=== PATIENT | female | born 2005 | race Caucasian/White ===

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

== ENCOUNTER 2023-03-02 00:36 | Emergency (ER) | payer MEDICAID, SELFPAY ==
[2023-03-02 00:39] VITALS: BP 130/84; PULSE 106; RESP 16; TEMP 36.6; O2SAT 99; BMI 35.2
--- NOTE | 2023-03-02 00:55 | ED_ITS ---
Documented by User: KENTRELL Cosme 03/02/23 01:27 HPI - General Adult General: Chief complaint: Nausea/Vomiting/Diarrhea Stated complaint: hives, n/v/d , 27 wks Time Seen by Provider: 03/02/23 00:40 Source: patient Mode of arrival: ambulatory Limitations: no limitations History of Present Illness: Patient is a 17-year-old female at 27 weeks presents to ED today with a complaint of hives. Patient states she was at home on the phone when she began to feel nauseous. She states she went to the bathroom and vomited. She states she then began having some stomach cramps and sat down on the bathroom and had diffuse watery diarrhea. She states while sitting on the toilet she then broke out in hives. She has a history of hives. Upon arrival to ED she states hives have slightly improved. She is not feeling nauseous. No stomach cramps/abdominal pains. Has not had any further diarrhea. Denies vaginal bleeding/leaking of fluids. OB provider is Dr. Garcia. Onset (ago): hour(s) Quality: other (abdominal cramping prior to diarrhea) Pain Consistency: now resolved Relieving factors: other (diarrhea) Exacerbating factors: none Associated symptoms: Reports nausea, rash and vomiting; Deny chest pain, dyspnea, headache(s), palpitations or syncope Treatments prior to arrival: none Review of Systems Const: Denies: fever(s), chills or body aches Eyes: Denies: change in vision, blurry vision, photophobia, floaters or seeing flashes Card: Denies: chest pain, palpitations, edema, lightheadedness, syncope or pre-syncope Resp: Denies: dyspnea GI: Reports: nausea, vomiting, diarrhea and GI cramping; Denies: hematemesis, rectal pain, hematochezia, melena or mucus in stool : Denies: flank pain, dysuria, hematuria or pelvic pain Musc: Denies: neck pain, back pain, extremity pain or joint pain Skin/Breast: Reports: rash Neuro: Denies: headache(s), numbness in extremities, weakness in extremities, sensory changes or dizziness PFS ED PFSH: Medical History No pertinent past medical history No hx: HTN, DM, thyroid, DVT/PE PCP: Edson Dash Surgical History No pertinent past surgical history Family History Grandfather Cancer Great grandfather - Rare blood cancer Father Hyperlipidemia Grandmother Stroke Great grandmother Denies family history of Diabetes CAD (coronary artery disease) Clotting disorder Dementia Psychiatric illness Chronic kidney disease (CKD) Suicide Anesthesia complication Bleeding disorder Lung disease Hypertension Physical Exam Const: COMMON NORMALS: no acute distress, average body habitus, patient oriented x3, no limitations, healthy appearing, alert and well nourished HENMT: COMMON NORMALS: normocephalic and atraumatic HEAD & SCALP: normal to inspection, normocephalic and atraumatic FACE & SINUS: normal facial exam Eye: COMMON NORMALS: no scleral icterus Resp: COMMON NORMALS: normal respiratory effort and clear to auscultation bila terally AUSCULTATION: clear to auscultation bilaterally Cardio: COMMON NORMALS: regular rate and regular rhythm RATE: regular rate RHYTHM: regular rhythm GI: COMMON NORMALS: non-tender INSPECTION: Yes gravid abdomen : COMMON NORMALS: Yes no CVA tenderness BLADDER/KIDNEY EXAM: Yes no CVA tenderness Back/Pelvis: COMMON NORMALS: no CVA tenderness Extremity: GENERAL: Yes normal exam except as noted Neuro: RAVI COMA SCALE: document GCS findings Maria Stein coma scale eye opening: Spontaneous Maria Stein coma scale verbal response: Orientated Ravi coma scale motor response: Obey commands Maria Stein coma scale total score: 15 COMMON NORMALS: patient oriented x3 SENSORIUM/ORIENTATION: Yes alert Skin: GENERAL SKIN EXAM: other (generalized urticaria) RASHES: rashes noted Course ED course: OB coming to monitor baby as she is 27 weeks . Care being transferred to Dr. Ni as my shift is ending. ES Vital Signs: Vital signs: Vital Signs Temperature 97.9 F 03/02/23 00:39 Pulse Rate 89 03/02/23 01:35 Respiratory Rate 17 03/02/23 01:35 Blood Pressure 112/79 03/02/23 01:35 Pulse Oximetry 97 03/02/23 01:35 Oxygen Delivery Me thod Room Air 03/02/23 00:39 MDM - General Adult Lab Data 03/02/23 01:15 03/02/23 01:15 Laboratory Results WBC 13.97 10^3/uL (4.5-13.0) H 03/02/23 01:15 RBC 3.93 10^6/uL (3.85-5.65) 03/02/23 01:15 Hgb 11.30 g/dL (12.4-14.8) L 03/02/23 01:15 Hct 34.7 % (36-47) L 03/02/23 01:15 MCV 88.3 fl (85-98) 03/02/23 01:15 MCH 28.8 pg (27-33) 03/02/23 01:15 MCHC 32.6 g/dL (30-55) 03/02/23 01:15 RDW 13.1 % (12.1-15.1) 03/02/23 01:15 Plt Count 301 10^3/cmm (157-399) 03/02/23 01:15 MPV 9.7 fL (7.4-10.4) 03/02/23 01:15 Neut % (Auto) 70.7 % 03/02/23 01:15 Lymph % (Auto) 20.9 % 03/02/23 01:15 [place] % (Auto) 6.8 % 03/02/23 01:15 Eos % (Auto) 0.9 % 03/02/23 01:15 Baso % (Auto) 0.2 % 03/02/23 01:15 Neut # (Auto) 9.88 10^3/uL (1.8-8.0) H 03/02/23 01:15 Lymph # (Auto) 2.9 10^3/uL (1.5-6.5) 03/02/23 01:15 [place] # (Auto) 1.0 10^3/uL (0.2-0.9) H 03/02/23 01:15 Eos # (Auto) 0.1 10^3/uL (0.0-0.8) 03/02/23 01:15 Baso # (Auto) 0.0 10^3/uL (0.0-0.1) 03/02/23 01:15 Nucleated RBC % (auto) 0 % 03/02/23 01:15 Nucleated RBCs # 0.0 /100WBC 03/02/23 01:15 Sodium 137 mmol/L (136-145) 03/02/23 01:15 Potassium 4.1 mmol/L (3.5-5.1) 03/02/23 01:15 Chloride 104 mmol/L (98-107) 03/02/23 01:15 Carbon Dioxide 24 mmol/L (22-29) 03/02/23 01:15 Anion Gap 13.1 (5-19) 03/02/23 01:15 BUN 8 mg/dL (6-20) 03/02/23 01:15 Creatinine 0.4 mg/dL (0.5-0.9) L 03/02/23 01:15 GFR Calculation 205.6 mL/min (90-130) H 03/02/23 01:15 Glucose 97 mg/dL (65-115) 03/02/23 01:15 Calculated Osmolality 282 mOsm/kg (285-295) L 03/02/23 01:15 Calcium 8.5 mg/dL (8.5-10.5) 03/02/23 01:15 Total Bilirubin 0.2 mg/dL (0.15-1.2) 03/02/23 01:15 AST 10 U/L (0-32) 03/02/23 01:15 ALT < 5 U/L (0-33) 03/02/23 01:15 Alkaline Phosphatase 137 U/L (35-105) H 03/02/23 01:15 Total Protein 7.0 g/dL (6.6-8.7) 03/02/23 01:15 Albumin 3.6 g/dL (3.5-5.2) 03/02/23 01:15 Globulin 3.4 g/dL (1.3-4.6) 03/02/23 01:15 Discharge Plan Discharge Patient Disposition: Home Clinical Impression: Anaphylactoid reaction Condition: Stable Prescriptions: New EpiPen 2-Edwin 0.3 mg/0.3 mL auto-injector 0.3 mg IM Q10M PRN (Reason: anaphylaxis) Qty: 2 0RF Rx Instructions: for 2 doses Benadryl 25 mg capsule 25 mg PO Q6H PRN (Reason: allergic reaction) Qty: 30 0RF Pepcid 20 mg tablet 20 mg PO BID Qty: 30 0RF No Action ibuprofen 800 mg tablet 800 mg PO TID Qty: 90 3RF metronidazole 500 mg tablet 500 mg PO BID 14 Days Qty: 28 0RF DOK 100 mg tablet 100 mg PO BID PRN (Reason: constipation) Qty: 20 0RF EpiPen 2-Edwin 0.3 mg/0.3 mL auto-injector 0.3 mg IM Q10M PRN (Reason: anaphylaxis) Qty: 2 2RF Rx Instructions: for 2 doses Discharge Orders: Discharge ED (Routine); Ordered 03/02/23 Ordered By: Alber Ni Referrals: Elias Garcia MD [Primary Care Provider] - 1-3 days Patient Instructions: Allergic Reaction, Opioid Safety, Pain Management Activity Restrictions/Additional Instructions: Take Benadryl and Pepcid scheduled as directed for the next 48 hours. You may take as needed following. Return for return of shortness of breath, throat tightness, vomiting, diarrhea, other concerning symptoms. If you feel you must use your EpiPen for an allergic reaction, come to the ER following. Follow-up with your doctor this week. Coding Level of Care Code ED [facility] [employer] for [facility]g Fwd Documented by User: Alber Ni DO 03/02/23 04:23 HPI - General Adult General: Chief complaint: Nausea/Vomiting/Diarrhea Stated complaint: hives, n/v/d , 27 wks Time Seen by Provider: 03/02/23 00:40 [facility] ED PFSH: Medical History No pertinent past medical history No hx: HTN, DM, thyroid, DVT/PE PCP: Edson Dash Surgical History No pertinent past surgical history Family History Grandfather Cancer Great grandfather - Rare blood cancer Father Hyperlipidemia Grandmother Stroke Great grandmother Denies family history of Diabetes CAD (coronary artery disease) Clotting disorder Dementia Psychiatric illness Chronic kidney disease (CKD) Suicide Anesthesia complication Bleeding disorder Lung disease Hypertension Physical Exam Neuro: RAVI COMA SCALE: document GCS findings Maria Stein coma scale total score: 15 Course Vital Signs: Vital signs: Vital Signs Temperature 97.9 F 03/02/23 00:39 Pulse Rate 89 03/02/23 01:35 Respiratory Rate 17 03/02/23 01:35 Blood Pressure 112/79 03/02/23 01:35 Pulse Oximetry 97 03/02/23 01:35 Oxygen Delivery Me thod Room Air 03/02/23 00:39 MDM - General Adult Medical Decision Making This patient was originally seen by Mrs. Kumar?DENVER Grady.? I agree with her history, evaluation, and treatment. I have examined the patient as well. She is much improved following administration of Benadryl and Pepcid. She is no longer itching. Obstetric staff has come to evaluate the child, and documented normal heart tones. With improvement in her symptoms, she will be allowed discharge. As she has had GI involvement as well as respiratory involvement and skin involvement, this constitutes an anaphylactoid type reaction. She will be discharged with the EpiPen. Precautions before and after use were given to the patient. Lab Data 03/02/23 01:15 03/02/23 01:15 Laboratory Results WBC 13.97 10^3/uL (4.5-13.0) H 03/02/23 01:15 RBC 3.93 10^6/uL (3.85-5.65) 03/02/23 01:15 Hgb 11.30 g/dL (12.4-14.8) L 03/02/23 01:15 Hct 34.7 % (36-47) L 03/02/23 01:15 MCV 88.3 fl (85-98) 03/02/23 01:15 MCH 28.8 pg (27-33) 03/02/23 01:15 MCHC 32.6 g/dL (30-55) 03/02/23 01:15 RDW 13.1 % (12.1-15.1) 03/02/23 01:15 Plt Count 301 10^3/cmm (157-399) 03/02/23 01:15 MPV 9.7 fL (7.4-10.4) 03/02/23 01:15 Neut % (Auto) 70.7 % 03/02/23 01:15 Lymph % (Auto) 20.9 % 03/02/23 01:15 [place] % (Auto) 6.8 % 03/02/23 01:15 Eos % (Auto) 0.9 % 03/02/23 01:15 Baso % (Auto) 0.2 % 03/02/23 01:15 Neut # (Auto) 9.88 10^3/uL (1.8-8.0) H 03/02/23 01:15 Lymph # (Auto) 2.9 10^3/uL (1.5-6.5) 03/02/23 01:15 [place] # (Auto) 1.0 10^3/uL (0.2-0.9) H 03/02/23 01:15 Eos # (Auto) 0.1 10^3/uL (0.0-0.8) 03/02/23 01:15 Baso # (Auto) 0.0 10^3/uL (0.0-0.1) 03/02/23 01:15 Nucleated RBC % (auto) 0 % 03/02/23 01:15 Nucleated RBCs # 0.0 /100WBC 03/02/23 01:15 Sodium 137 mmol/L (136-145) 03/02/23 01:15 Potassium 4.1 mmol/L (3.5-5.1) 03/02/23 01:15 Chloride 104 mmol/L (98-107) 03/02/23 01:15 Carbon Dioxide 24 mmol/L (22-29) 03/02/23 01:15 Anion Gap 13.1 (5-19) 03/02/23 01:15 BUN 8 mg/dL (6-20) 03/02/23 01:15 Creatinine 0.4 mg/dL (0.5-0.9) L 03/02/23 01:15 GFR Calculation 205.6 mL/min (90-130) H 03/02/23 01:15 Glucose 97 mg/dL (65-115) 03/02/23 01:15 Calculated Osmolality 282 mOsm/kg (285-295) L 03/02/23 01:15 Calcium 8.5 mg/dL (8.5-10.5) 03/02/23 01:15 Total Bilirubin 0.2 mg/dL (0.15-1.2) 03/02/23 01:15 AST 10 U/L (0-32) 03/02/23 01:15 ALT < 5 U/L (0-33) 03/02/23 01:15 Alkaline Phosphatase 137 U/L (35-105) H 03/02/23 01:15 Total Protein 7.0 g/dL (6.6-8.7) 03/02/23 01:15 Albumin 3.6 g/dL (3.5-5.2) 03/02/23 01:15 Globulin 3.4 g/dL (1.3-4.6) 03/02/23 01:15 No radiology studies performed this visit Discharge Plan Discharge Patient Disposition: Home Clinical Impression: Anaphylactoid reaction Condition: Stable Prescriptions: New EpiPen 2-Edwin 0.3 mg/0.3 mL auto-injector 0.3 mg IM Q10M PRN (Reason: anaphylaxis) Qty: 2 0RF Rx Instructions: for 2 doses Benadryl 25 mg capsule 25 mg PO Q6H PRN (Reason: allergic reaction) Qty: 30 0RF Pepcid 20 mg tablet 20 mg PO BID Qty: 30 0RF No Action ibuprofen 800 mg tablet 800 mg PO TID Qty: 90 3RF metronidazole 500 mg tablet 500 mg PO BID 14 Days Qty: 28 0RF DOK 100 mg tablet 100 mg PO BID PRN (Reason: constipation) Qty: 20 0RF EpiPen 2-Edwin 0.3 mg/0.3 mL auto-injector 0.3 mg IM Q10M PRN (Reason: anaphylaxis) Qty: 2 2RF Rx Instructions: for 2 doses Discharge Orders: Discharge ED (Routine); Ordered 03/02/23 Ordered By: Alber Ni Referrals: Elias Garcia MD [Primary Care Provider] - 1-3 days Patient Instructions: Allergic Reaction, Opioid Safety, Pain Management Activity Restrictions/Additional Instructions: Take Benadryl and Pepcid scheduled as directed for the next 48 hours. You may take as needed following. Return for return of shortness of breath, throat tightness, vomiting, diarrhea, other concerning symptoms. If you feel you must use your EpiPen for an allergic reaction, come to the ER following. Follow-up with your doctor this week. Coding Level of Care Code ED [facility] for Pranay Raines
[2023-03-02] MEDS: diphenhydrAMINE 50 mg/mL SDV 1mL IVP (01:27)
[2023-03-02] MEDS: famotidine 20 mg/2 mL INJ 40 MG IVP (01:27)
[2023-03-02 01:30] LABS: Basophils % 0.2 %; Eosinophils # 0.1 10^3/uL (0.0-0.8); Eosinophils % 0.9 %; Hematocrit 34.7 % (36-47); Lymphocytes # 2.9 10^3/uL (1.5-6.5); Lymphocytes % 20.9 %; Mean Corpuscular HGB Conc 32.6 g/dL (30-55); Mean Corpuscular Hemoglobin 28.8 pg (27-33); Mean Corpuscular Volume 88.3 fl (85-98); Mean Platelet Volume 9.7 fL (7.4-10.4); Monocytes % 6.8 %; Neutrophils # 9.88 10^3/uL (1.8-8.0); Neutrophils % 70.7 %; Nucleated Red Blood Cells % 0 %; Platelet Count 301 10^3/cmm (157-399); Red Blood Count 3.93 10^6/uL (3.85-5.65); Red Cell Distribution Width 13.1 % (12.1-15.1); White Blood Count 13.97 10^3/uL (4.5-13.0)
[2023-03-02 01:35] VITALS: BP 112/79; PULSE 89; RESP 17; O2SAT 97
[2023-03-02 01:54] LABS: Alanine Aminotransferase < 5 U/L (0-33); Albumin Level 3.6 g/dL (3.5-5.2); Alkaline Phosphatase 137 U/L (35-105); Anion Gap 13.1 (5-19); Aspartate Amino Transferase 10 U/L (0-32); Blood Urea Nitrogen 8 mg/dL (6-20); Calcium 8.5 mg/dL (8.5-10.5); Carbon Dioxide 24 mmol/L (22-29); Chloride 104 mmol/L (98-107); Globulin 3.4 g/dL (1.3-4.6); Glomerular Filtration Rate 205.6 mL/min (90-130); Glucose 97 mg/dL (65-115); Osmolality Calculated 282 mOsm/kg (285-295); Potassium 4.1 mmol/L (3.5-5.1); Sodium 137 mmol/L (136-145); Total Bilirubin 0.2 mg/dL (0.15-1.2)
== END 2023-03-02 02:49 | disposition home or self-care (01) ==
PROVIDERS: Emergency Provider Physician Assistant; PCP Family Medicine
DX: O26.892 Other specified pregnancy related conditions, second trimester (principal); T78.2XXA Anaphylactic shock, unspecified, initial encounter; Z3A.27 27 weeks gestation of pregnancy; X58.XXXA Exposure to other specified factors, initial encounter
CPT/HCPCS: 80053; 85025; 96374; 96375; 99284; J1200; J3490

== ENCOUNTER 2023-03-09 07:59 | Oncology outpatient (recurring) (ONCR) | payer MEDICAID, SELFPAY ==
[2023-03-09 08:14] VITALS: BP 116/61; PULSE 88; RESP 16; TEMP 36.7; O2SAT 98
[2023-03-09 10:36] VITALS: BP 114/74; PULSE 94; RESP 18; TEMP 36.5; O2SAT 98
[2023-03-09 10:42] VITALS: BP 115/74; PULSE 94; RESP 17; TEMP 36.6; O2SAT 98
== END 2023-03-19 23:59 | disposition home or self-care (01) ==
PROVIDERS: PCP Family Medicine; Visit Provider Family Medicine
DX: O36.0930 Maternal care for other rhesus isoimmunization, third trimester, not applicable or unspecified (principal); Z67.91 Unspecified blood type, Rh negative
CPT/HCPCS: 36415; 86850; 86900; 90384

== ENCOUNTER 2023-05-01 08:25 | Outpatient (CLI) | payer MEDICAID, SELFPAY ==
[2023-05-01 08:25] VITALS: BMI 37.2
[2023-05-01 08:48] VITALS: BP 123/74; PULSE 97
[2023-05-01 08:52] LABS: Glucose Point of Care 94 mg/dL (70-110)
[2023-05-01 09:08] VITALS: BP 115/59; PULSE 85
[2023-05-01 09:28] VITALS: BP 109/61; PULSE 87
== END 2023-05-01 09:37 | disposition home or self-care (01) ==
LOC: OPOB 08:38 → OBGYN 08:41
PROVIDERS: PCP Family Medicine; Visit Provider Family Medicine
DX: O26.899 Other specified pregnancy related conditions, unspecified trimester (principal); Z3A.00 Weeks of gestation of pregnancy not specified; R55 Syncope and collapse
CPT/HCPCS: 36416; 59025; 82962; 99211

== ENCOUNTER 2023-05-11 14:55 | Outpatient (CLI) | payer MEDICAID, SELFPAY ==
[2023-05-11 14:50] VITALS: BMI 36.6
[2023-05-11 14:58] VITALS: RESP 16; TEMP 36.9
[2023-05-11 15:25] LABS: Bilirubin Urine 1+ (Negative); Blood Urine Neg (Negative); Glucose Urine UA Norm (Normal); Ketones Urine 2+ (Negative); Leukocyte Esterase Urine 2+ (Negative); Nitrate Urine Negative (Negative); Protein Urine Trace (Negative); Urine Appearance Hazy (CLEAR); Urine Color Dark Yellow (Yellow); Urobilinogen Urine 4 mg/dL (Negative); pH Urine 6.5 (5-7)
[2023-05-11 15:26] LABS: Add Urine Culture? No; Bacteria Urine 1+ /hpf; Squamous Epithelial Cell Urine 25-40 /hpf (0-5); WBC Urine 25-40 /hpf (0-5)
== END 2023-05-11 15:52 | disposition home or self-care (01) ==
LOC: OPOB 14:56 → OBGYN 15:10
PROVIDERS: Absent Provider Family Medicine; PCP Family Medicine; Visit Provider Family Medicine
DX: O36.8190 Decreased fetal movements, unspecified trimester, not applicable or unspecified (principal); Z3A.00 Weeks of gestation of pregnancy not specified; R10.9 Unspecified abdominal pain; R50.9 Fever, unspecified
CPT/HCPCS: 59025; 81001; 99211

== ENCOUNTER → 2023-05-14 09:31 | Day surgery (SDC) | payer MEDICAID, SELFPAY ==
--- NOTE | 2023-05-14 10:54 | ANES.PREANE2 ---
Pre-Anesthetic Assessment Height/Weight: Height 1.63 m Operation Date: 05/28/23 12:20 Proposed Procedures p Section 37473,Z34.03(Not Applicable) - Elias Garcia MD Familial anesthetic complications: none Was Beta Edwin taken within 24 hours: N/A Was Clonidine taken within 24 hours: N/A Social No alcohol and No tobacco Exam alert, oriented x 3, clear to auscultation bilaterally and regular rate & rhythm Airway Submandibular: within normal limits Cervical ROM: within normal limits Mallampati: Class II Dentition: full Anesthetic Plan ASA status: 2 Anesthesia: Regional (specify below) (SAB (breech)) Medications/Allergies Home Medications Medication Instructions Recorded Confirmed Last Taken Type No Known Home Medications 05/01/23 05/01/23 Unknown History Allergies Allergy/AdvReac Type Severity Reaction Status Date / Time No Known Allergies Allergy Verified 03/02/23 00:44 [facility] Anesthesia Medical History No pertinent past medical history No hx: HTN, DM, thyroid, DVT/PE PCP: Edson Dash Surgical History No pertinent past surgical history Family History Grandfather Cancer Great grandfather - Rare blood cancer Father Hyperlipidemia Grandmother Stroke Great grandmother Denies family history of Diabetes CAD (coronary artery disease) Clotting disorder Dementia Psychiatric illness Chronic kidney disease (CKD) Suicide Anesthesia complication Bleeding disorder Lung disease Hypertension Data Anesthesia Cardiac Studies: No Data to Display
--- NOTE | 2023-05-28 06:46 | ANES.PREANE2 ---
Pre-Anesthetic Assessment Height/Weight: Height 1.63 m Operation Date: 05/28/23 07:00 Proposed Procedures p Section 95351,Z34.03(Not Applicable) - Elias Garcia MD Social No alcohol and No tobacco Exam alert, oriented x 3, clear to auscultation bilaterally and regular rate & rhythm Airway Submandibular: within normal limits Cervical ROM: within normal limits Mallampati: Class I Dentition: full Anesthetic Plan ASA status: 2 Anesthesia: Regional (specify below) Other: spinal with geta in reserve Medications/Allergies Home Medications Medication Instructions Recorded Confirmed Last Taken Type No Known Home Medications 05/01/23 05/01/23 Unknown History Allergies Allergy/AdvReac Type Severity Reaction Status Date / Time No Known Allergies Allergy Verified 03/02/23 00:44 [facility] Anesthesia Medical History No pertinent past medical history No hx: HTN, DM, thyroid, DVT/PE PCP: Edson Dash Surgical History No pertinent past surgical history Family History Grandfather Cancer Great grandfather - Rare blood cancer Father Hyperlipidemia Grandmother Stroke Great grandmother Denies family history of Diabetes CAD (coronary artery disease) Clotting disorder Dementia Psychiatric illness Chronic kidney disease (CKD) Suicide Anesthesia complication Bleeding disorder Lung disease Hypertension Data Anesthesia Cardiac Studies: No Data to Display
== END ==
PROVIDERS: PCP Family Medicine; Visit Provider Family Medicine
PROC: (CPT 59514; principal; 2023-05-28 07:00)
DX: Z01.818 Encounter for other preprocedural examination (principal)
CPT/HCPCS: 59409

== ENCOUNTER 2023-05-28 05:13 | Inpatient (IN) | payer MEDICAID, SELFPAY ==
[2023-05-28] VITALS (108 sets, daily range): BP systolic 106–152; BP diastolic 47–91; PULSE 66–107; RESP 16; TEMP 36.2–36.4; O2SAT 91–100; BMI 36.8
[2023-05-28 05:56] LABS: Basophils % 0.3 %; Eosinophils % 0.4 %; Hematocrit 31.8 % (36-47); Lymphocytes # 2.6 10^3/uL (1.5-6.5); Lymphocytes % 23.7 %; Mean Corpuscular HGB Conc 30.8 g/dL (30-55); Mean Corpuscular Hemoglobin 24.6 pg (27-33); Mean Corpuscular Volume 79.9 fl (85-98); Mean Platelet Volume 10.9 fL (7.4-10.4); Monocytes # 0.8 10^3/uL (0.2-0.9); Monocytes % 7.2 %; Neutrophils # 7.55 10^3/uL (1.8-8.0); Nucleated Red Blood Cells % 0 %; Platelet Count 210 10^3/cmm (157-399); Red Blood Count 3.98 10^6/uL (3.85-5.65); Red Cell Distribution Width 14.4 % (12.1-15.1); White Blood Count 11.09 10^3/uL (4.5-13.0)
[2023-05-28] MEDS: lactated ringers 1,000 ML 999 ML IV (06:17)
[2023-05-28] MEDS: citric acid-sodium citrate 30 mL UDC PO (06:38)
[2023-05-28] MEDS: metoclopramide 5 mg/mL SDV 2 mL 10 MG IV (06:38)
[2023-05-28] MEDS: famotidine 20 mg/2 mL INJ IVP (06:38)
[2023-05-28] MEDS: ceFAZolin 2,000 MG in sodium chloride 0.9% (plus) 50 ML 100 MG IV (06:39)
--- NOTE | 2023-05-28 06:41 | P.HP_ITS ---
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 The patient has otherwise had an unremarkable . When she was found to have a breech presentation we discussed options including an external version. After discussing all of the pros and cons and risks and benefits, we decided to proceed with a scheduled section. Her due date is based on a first trimester ultrasound. Her lab work was also unremarkable. Her blood type is O-. Her antibody screen was negative. She received RhoGAM shot on 09 March. She passed her glucose screen. She is rubella immune. She is GBS negative. The remainder of her infectious disease profile is within normal limits. Present Details : 1 Para: 0 Labs Rubella: Immune RPR: Negative GBS: Negative Review of Systems 2 General: Reports: 10 or more systems reviewed and unremarkable except in HPI and below Const: Reports: fatigue; Denies: fever(s) Eyes: Denies: change in vision Card: Denies: chest pain Musc: Reports: back pain Jose Daniel/Lymph: Denies: easy bruising Medications/Allergies Home Medications Medication Instructions Recorded Confirmed Last Taken Type No Known Home Medications 05/01/23 05/01/23 Unknown History Allergies Allergy/AdvReac Type Severity Reaction Status Date / Time No Known Allergies Allergy Verified 03/02/23 00:44 PFSH 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 2 PFSH: Medical History No pertinent past medical history No hx: HTN, DM, thyroid, DVT/PE PCP: Edson Dash Surgical History No pertinent past surgical history Family History Grandfather Cancer Great grandfather - Rare blood cancer Father Hyperlipidemia Grandmother Stroke Great grandmother Denies family history of Diabetes CAD (coronary artery disease) Clotting disorder Dementia Psychiatric illness Chronic kidney disease (CKD) Suicide Anesthesia complication Bleeding disorder Lung disease Hypertension History History History 2 0 Term Miscarriages/Ectopic Living Children Vitals/I&O/Wt Last Vital Signs Pulse 83 05/28/23 06:13 BP 121/76 05/28/23 06:28 O2 Del Method Room Air 05/28/23 05:36 Weight last 48 hrs Weight 215 lb Physical Exam 2 Const: COMMON NORMALS: patient oriented x3 and alert HENMT: COMMON NORMALS: moist oral mucous membranes HEAD & SCALP: normal to inspection Chest: COMMONS NORMALS: normal inspection of the chest Resp: COMMON NORMALS: clear to auscultation bilaterally AUSCULTATION: clear to auscultation bilaterally Cardio: COMMON NORMALS: regular rate and regular rhythm RATE: regular rate RHYTHM: regular rhythm GI: INSPECTION: Yes normal to inspection and Yes other (Gravid) Extremity: COMMON NORMALS: normal to inspection GENERAL: Yes edema (Trace) Neuro: COMMON NORMALS: patient oriented x3, moves all extremities and no sensory deficits noted SENSORIUM/ORIENTATION: Yes alert Psych: COMMON NORMALS: mental status grossly normal Skin: COMMON NORMALS: no rashes or lesions noted GENERAL SKIN EXAM: no rashes or lesions noted Data 05/28/23 05:45 Results Labs OB ([facility]): 2 Blood Type O Negative 05/28/23 Antibody Screen Negative 05/28/23 Hct 31.8 % (36-47) L 05/28/23 Hgb 9.80 g/dL (12.4-14.8) L 05/28/23 Rho(D) Type Negative 05/28/23 Plt Count 210 10^3/cmm (157-399) 05/28/23 HCG, Qual Positive (Negative) H 11/16/22 A&P Assessment and plan (1) 39 weeks gestation of : We will proceed with a scheduled section. We have discussed the risks including the risks of bleeding, infection, and damage intra-abdominal organs. The patient has no further questions and wishes to proceed. (2) Breech presentation: Attestations 2 Medical Necessity Statement*: Routine and post care Coding Level of Care Code Acute Code for Chg Fwd Diagnoses 39 weeks gestation of Z3A.39 Breech presentation O32.1XX0
[2023-05-28] MEDS: BUPivacaine 0.5% INJ 30 mL INJECTION (07:36)
--- NOTE | 2023-05-28 08:21 | PM.OP ---
Operative Report Date of procedure: May 28, 2023 Pre-op diagnosis: 17-year-old 1 at 39 weeks estimated gestational age presenting for a scheduled section due to breech presentation Post-op diagnosis: Same Post-op findings: Breech presentation Procedure done: Low-transverse section Specimens removed/disposition: 1. Female with Apgars of 9 and 9 and weight of 8 pounds 4 ounces 2 placenta with a three-vessel cord delivered intact Surgeon: Elias Garcia MD Estimated blood loss (mL): 600 Complications: None Procedure: The patient was brought back to the operating room where she was prepped and draped in usual sterile fashion. Anesthesia was found to be adequate. A lower transverse skin incision was then made with a #10 blade. I then dissected down to the underlying subcutaneous tissue until arriving at the prerectal fascia. The fascia was then nicked with the scalpel bilaterally. The fascial incisions were then carried laterally with Pickering scissors. Attention was then turned to the superior aspect of the incision which was grasped with kochers and tented up away from the underlying rectus abdominis muscles. The muscles were then dissected away from the fascia manually, and later with Pickering scissors. Attention was then turned to the inferior aspect of the incision, and the fascia was dissected away from the underlying muscle in similar fashion. The rectus abdominis muscles were then spread manually. The peritoneum was entered manually. Excellent visualization of the uterus was noted. A lower transverse uterine incision was then made with a #10 blade. Upon arriving at the intrauterine cavity, the uterine incision was then extended manually. The infant was noted to be in gianna breech position. The baby was delivered without difficulty. After delivery of the head, the mouth and nose were suctioned at the site of the incision. There was no meconium. There was no nuchal cord. The cord was cut and clamped. The baby was then handed to the waiting nurses. The placenta was removed intact. The uterus was externalized. The intrauterine cavity was cleansed of any remaining debris. The uterine incision was reapproximated in 2 layers. The first layer was performed with 0 Vicryl in a running locked stitch. The second layer was an imbricating stitch also using 0 Vicryl. The uterus was replaced into the abdomen. The peritoneum was then irrigated with warm saline. I reexamined the uterine incision and found it to be hemostatic. The rectus abdominis muscles were then reapproximated using 0 Vicryl in a running stitch. The fascia was then reapproximated using 0 Vicryl in running stitch. The subcutaneous tissue was reapproximated using 0 Vicryl in a running stitch. The skin was reapproximated using henrry. A sterile dressing was placed. All counts were correct x2. Both the mother and baby were in stable condition.
[2023-05-28] MEDS: dextrose 5%-lactated ringers 1,000 ML 125 ML IV (12:59)
--- NOTE | 2023-05-28 14:43 | PC.NURSE ---
Patient assisted up to chair. Pt tolerated well.
[2023-05-28] MEDS: ketorolac 30 mg/mL INJ IVP ×2 (16:13→23:29)
--- NOTE | 2023-05-28 16:38 | PC.NURSE ---
Patient ambulated 5 laps in the hallway. Tolerated well
[2023-05-28] MEDS: docusate sodium 100 mg Capsule PO (18:48)
[2023-05-28] MEDS: ferrous sulfate EC 325 mg Tablet PO (18:48)
[2023-05-28 21:18] LABS: Mean Corpuscular HGB Conc 30.9 g/dL (30-55); Mean Corpuscular Volume 80.9 fl (85-98); Mean Platelet Volume 11.2 fL (7.4-10.4); Platelet Count 223 10^3/cmm (157-399); Red Blood Count 4.08 10^6/uL (3.85-5.65); Red Cell Distribution Width 14.6 % (12.1-15.1); White Blood Count 12.15 10^3/uL (4.5-13.0)
[2023-05-29 05:00] VITALS: BP 106/64; PULSE 116; RESP 16; TEMP 36.7; O2SAT 97
[2023-05-29 05:01] VITALS: BP 106/64; PULSE 116
--- NOTE | 2023-05-29 07:01 | PC.NURSE ---
This nurse educated patient on filling out I&O sheet. Patient reported feeding baby every two hours to two and a half hours 10-20 mls each time. Mother also reports to have changed 6 poppy and wet diapers or more over night.
--- NOTE | 2023-05-29 07:23 | PC.NURSE ---
This nurse rounded on patient around 0650am at 05/29/23. This nurse educated patient on nurse that would be caring for them on day shift, the plan for the day being that baby would have 24hr tests preformed, and asked if the patient had any questions. this nurse also educated patient on possibility that they would be staying another night due to having a primary . At this time the grandmother in the room become agitated. Stating I dont understand how it has changed overnight as the nurse yesterday said she would be discharged today and was pumping Bereket up to go home all day yesterday. This nurse then restated That it is not certain that the patient would have to stay another night but that it is a possibility and I do not want them to be surprised if it is brought up, I would want to know of all the possibilities that is why I am telling you. The grandmother then stated, This is just not going to work she is not getting any rest here. This nurse then restated that it is just a possibility and not for certain that they would be staying and that going home the patient may still not get rest as she would still be waking up with baby for feeds. The grandmother then stated She will have plenty of help at home and Im a nurse you know. This nurse then stated I totally understand that and I have no concerns with the support she will be getting at home, I just want all the possibilities to be on the table so there are no surprises this morning. This nurse then spoke with mother of baby to ensure that she had no concerns or questions regarding her or baby's care. Mom reported none at this time and thanked the nurse for care through the night.
--- NOTE | 2023-05-29 07:50 | P.DS_ITS ---
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 The was unremarkable. Her postoperative course was also been unremarkable. She was passing flatus the afternoon of the surgery. She had a regular diet the night of the surgery. She ambulated often. Her pain has been well-controlled with minimal medication. She is breast- feeding well. Information Peripartum Data: Infant Delivery Method: Physical Exam Narrative: She is in no acute distress Lungs are clear auscultation bilaterally Her heart has a regular rate and rhythm Her fundus is below the umbilicus and firm Her dressing is clean, dry and intact Her extremities have trace edema Urinary Catheter Management: Gonzáles Latex: Cath Placed During This Visit: yes, but has since been removed by the nurse Reason for Continuing Indwelling Catheter: Required Immobilization for Trauma or Surgery or Anesthesia Urinary Catheter Date of Insertion: 05/28/23 Urinary Catheter Time of Insertion: 07:15 Date Urinary Catheter Removed: 05/28/23 Time Urinary Catheter Discontinued: 17:38 History History History 0 Term Miscarriages/Ectopic Living Children Discharge Data Studies Completed and Pending Laboratory Results WBC 12.15 10^3/uL (4.5-13.0) 05/28/23 21:00 RBC 4.08 10^6/uL (3.85-5.65) 05/28/23 21:00 Hgb 10.20 g/dL (12.4-14.8) L 05/28/23 21:00 Hct 33.0 % (36-47) L 05/28/23 21:00 MCV 80.9 fl (85-98) L 05/28/23 21:00 MCH 25.0 pg (27-33) L 05/28/23 21:00 MCHC 30.9 g/dL (30-55) 05/28/23 21:00 RDW 14.6 % (12.1-15.1) 05/28/23 21:00 Plt Count 223 10^3/cmm (157-399) 05/28/23 21:00 MPV 11.2 fL (7.4-10.4) H 05/28/23 21:00 Neut % (Auto) 68.0 % 05/28/23 05:45 Lymph % (Auto) 23.7 % 05/28/23 05:45 Humphreys % (Auto) 7.2 % 05/28/23 05:45 Eos % (Auto) 0.4 % 05/28/23 05:45 Baso % (Auto) 0.3 % 05/28/23 05:45 Neut # (Auto) 7.55 10^3/uL (1.8-8.0) 05/28/23 05:45 Lymph # (Auto) 2.6 10^3/uL (1.5-6.5) 05/28/23 05:45 Humphreys # (Auto) 0.8 10^3/uL (0.2-0.9) 05/28/23 05:45 Eos # (Auto) 0.0 10^3/uL (0.0-0.8) 05/28/23 05:45 Baso # (Auto) 0.0 10^3/uL (0.0-0.1) 05/28/23 05:45 Nucleated RBC % (auto) 0 % 05/28/23 05:45 Nucleated RBCs # 0.0 /100WBC 05/28/23 05:45 Blood Type O Negative 05/28/23 05:45 Rho(D) Type Negative 05/28/23 05:45 Antibody Screen Negative 05/28/23 05:45 Screen Negative (Negative) 05/28/23 21:00 Vitals Last Vital Signs Temp 98.1 F 05/29/23 05:00 Pulse 116 H 05/29/23 05:01 Resp 16 05/29/23 05:00 BP 106/64 05/29/23 05:01 Pulse Ox 97 05/29/23 05:00 O2 Del Method Room Air 05/29/23 05:00 Results Labs OB ([facility]): Blood Type O Negative 05/28/23 Antibody Screen Negative 05/28/23 Hct 33.0 % (36-47) L 05/28/23 Hgb 10.20 g/dL (12.4-14.8) L 05/28/23 Rho(D) Type Negative 05/28/23 Plt Count 223 10^3/cmm (157-399) 05/28/23 HCG, Qual Positive (Negative) H 11/16/22 Discharge Plan Discharge Patient Disposition: Home Condition: Stable Prescriptions: New ibuprofen 800 mg Tablet 800 mg PO TID Qty: 45 0RF hydrocodone-acetaminophen 5-325 mg Tablet 1 tab PO Q6H PRN (Reason: Moderate To Severe Pain) Qty: 28 0RF -U 106.5-1 mg Capsule 1 cap PO BREAKFAST Qty: 90 1RF Discharge Orders: Discharge Order (Routine); Ordered 05/29/23 Ordered By: Elias Garcia Referrals: Elias Garcia MD [Primary Care Provider] - 06/04/23 (The patient already has an appointment on that day. Please call and have it changed to a incision check. Please make sure the appointment is coordinated with her baby's appointment. Thank you) Discharge Diet: Usual diet Discharge Activity: Limit activity as instructed Patient Instructions: Depression (DC), Bleeding (DC), Preeclampsia and Eclampsia After Delivery (GEN), Hemorrhage (DC), OB - Jose/Schuyler, OB Discharge Report, OB Anesthesia Instructions, OB Food/Drug Interaction Guide, Opioid Safety, OB Home Care, OB Proud Parent Packet Discharge Attestations DATABASE PROGRAMMER ANALYST Time Spent in Discharge Care*: less than 30 min Coding Level of Care Code Acute Code for Chg Fwd Diagnoses 39 weeks gestation of Z3A.39 Breech presentation O32.1XX0
[2023-05-29] MEDS: ibuprofen 800 mg tablet PO (10:55)
[2023-05-29] MEDS: prenatal vitamin Capsule 1 CAP PO (10:55)
[2023-05-29] MEDS: ferrous sulfate EC 325 mg Tablet PO (10:55)
[2023-05-29] MEDS: docusate sodium 100 mg Capsule PO (10:56)
[2023-05-29 14:23] VITALS: BP 117/58; PULSE 94
[2023-05-29 14:30] VITALS: BP 117/58; PULSE 94; RESP 16; TEMP 36.6
== END 2023-05-29 14:30 | disposition home or self-care (01) | DRG 788 ==
PROVIDERS: Admitting Provider Family Medicine; PCP Family Medicine; Visit Provider Family Medicine
DX: O32.1XX0 Maternal care for breech presentation, not applicable or unspecified (principal); Z3A.39 39 weeks gestation of pregnancy; Z37.0 Single live birth
CPT/HCPCS: 36415; 36430; 51702; 59025; 59409; 85025; 85027; 85460; 86850; 86900; 90384; 96374; J0690; J1200; J1885; J2274; J2371; J2405; J2765; J3490; J7120; J7121

== ENCOUNTER 2023-07-15 20:13 | Emergency (ER) | payer MEDICAID, SELFPAY ==
[2023-07-15 20:17] VITALS: BP 140/85; PULSE 90; RESP 18; TEMP 36.6; O2SAT 97
--- NOTE | 2023-07-15 20:21 | ED_ITS ---
HPI - Back Pain/Injury 2 General: Chief Complaint: Back Pain/Injury Stated Complaint: severe right low back pain Time Seen by Provider: 07/15/23 20:21 Source: patient Mode of arrival: ambulatory Limitations: no limitations History of Present Illness: Patient is a nice 18-year-old female presents to ED today with complaint of right-sided back pain. Patient states pain began around 3 PM this afternoon after awaking from a nap. She states she has had similar discomforts previously but never this severe. She has never sought medical evaluation for them before. She states when they have come on previously, they have lasted for several hours before subsiding on their own. She states she has never had any urinary symptoms with them such as hematuria, dysuria, frequency or urgency. She states pain does not seem to radiate into her buttock or down her leg. Pain is worse with movement. She does not feel pain radiates into her abdomen. She states today when pain started she became nauseous and vomited once. No fevers. Patient is almost 2 months . She states she never had any back discomforts while and that all of her previous episodes were before . MD elicited complaint: back pain Pertinent past history: prior back pain Onset (ago): hour(s) Timing: constant Severity: severe Similar Symptoms Previously: Yes Location: right lower back Radiation: none Exacerbating factors: movement Relieving factors: none Associated symptoms: Reports nausea and vomiting (x 1); Deny abdominal pain, chills, change in bowel habits, difficulty walking, dysuria, fatigue, fever(s) or urinary urgency Work related injury: No Review of Systems 2 Const: Denies: fever(s), chills, body aches, fatigue or malaise Card: Denies: chest pain Resp: Denies: dyspnea GI: Reports: nausea and vomiting (x 1); Denies: abdominal pain, hematemesis or change in bowel habits : Denies: flank pain, difficulty voiding, dysuria, urinary frequency, urinary urgency or urinary hesitancy Musc: Reports: back pain; Denies: neck pain, extremity pain, extremity swelling, joint pain, joint swelling or limited range of motion Skin/Breast: Denies: rash Neuro: Denies: numbness in extremities, sensory changes or difficulty walking PFS ED 2 PFSH: Medical History No pertinent past medical history No hx: HTN, DM, thyroid, DVT/PE PCP: Edson Dash Surgical History No pertinent past surgical history Family History Grandfather Cancer Great grandfather - Rare blood cancer Father Hyperlipidemia Grandmother Stroke Great grandmother Denies family history of Diabetes CAD (coronary artery disease) Clotting disorder Dementia Psychiatric illness Chronic kidney disease (CKD) Suicide Anesthesia complication Bleeding disorder Lung disease Hypertension Female Reproductive History: Date of last menstrual period: 07/09/23 Physical Exam 2 Const: COMMON NORMALS: no acute distress, patient oriented x3, no limitations, healthy appearing, alert and well nourished ORIENTATION/CONSCIOUSNESS: Yes awake, Yes oriented to person, Yes oriented to place and Yes oriented to time Resp: COMMON NORMALS: normal respiratory effort and clear to auscultation bilaterally AUSCULTATION: clear to auscultation bilaterally Cardio: COMMON NORMALS: regular rate and regular rhythm RATE: regular rate RHYTHM: regular rhythm GI: COMMON NORMALS: Normal to inspection, nondistended, normoactive bowel sounds present, Soft to palpation and no masses INSPECTION: Yes normal to inspection AUSCULTATION: Yes normoactive bowel sounds PALPATION: Yes Soft to palpation, Yes Tenderness to palpation present (GI) (RUQ), No Guarding due to palpation present (GI), No Rigid due to palpation and Yes Hepatomegaly present : COMMON NORMALS: Yes no CVA tenderness BLADDER/KIDNEY EXAM: Yes no CVA tenderness Back/Pelvis: COMMON NORMALS: no CVA tenderness, thoracic and lumbar spine normal to inspection, no thoracic nor lumbar tenderness, thoraco-lumbar ROM normal and straight leg raise negative bilaterally PELVIS: Yes buttocks normal and No sciatic notch tenderness SACRUM: no tenderness COCCYX: no tenderness BACK IMAGE (FEMALE): 1. TTP with no radicular discomforts Extremity: COMMON NORMALS: normal to inspection, capillary refill normal, no clubbing, cyanosis or edema, no calf tenderness and no pedal edema GENERAL: Y es normal exam except as noted Neuro: COMMON NORMALS: patient oriented x3, moves all extremities, no focal motor deficits, no sensory deficits noted and gait normal S ENSORIUM/ORIENTATION: Yes alert, Yes oriented to person, Yes oriented to place and Yes oriented to time Skin: COMMON NORMALS: no rashes or lesions noted GENERAL SKIN EXAM: no rashes or lesions noted Course 2 Vital Signs: Vital signs: Vital Signs Temperature 97.9 F 07/15/23 20:17 Pulse Rate 90 07/15/23 20:17 Respiratory Rate 18 07/15/23 20:17 Blood Pressure 124/65 07/15/23 21:27 Pulse Oximetry 97 07/15/23 20:17 Oxygen Delivery Me thod Room Air 07/15/23 20:17 MDM - Back Pain/Injury Medical Decision Making Patient here for right-sided back pain that began this afternoon. Patient states she has had similar discomforts multiple times before that have always resolved on their own. She has no radicular discomfort. No urinary symptoms. She did not complain of abdominal pain but was slightly tender on exam this blood work obtained. It is essentially unremarkable-she does have very scantly elevated LFTs. I suspect this is due to some degree of a fatty liver. Initial UA contaminated. We did try to repeat after careful clean-catch instructions however repeat urinalysis was also contaminated. Ultimately does not look overly suspicious for UTI and she does not complain of dysuria, frequency, urgency. Patient gained complete relief of her discomfort after IM Toradol and Norflex suggesting a musculoskeletal etiology. Recommend continuing anti- inflammatories as well as ice and heat at home. She will follow-up with primary care if pain persist. Return to ED precautions given. Labs 07/15/23 20:37 07/15/23 20:37 Laboratory Results WBC 11.92 10^3/uL (4.5-13.0) 07/15/23 20:37 RBC 4.66 10^6/uL (3.85-5.65) 07/15/23 20:37 Hgb 11.70 g/dL (12.4-14.8) L 07/15/23 20:37 Hct 38.6 % (36-47) 07/15/23 20:37 MCV 82.8 fl (85-98) L 07/15/23 20:37 MCH 25.1 pg (27-33) L 07/15/23 20:37 MCHC 30.3 g/dL (30-55) 07/15/23 20:37 RDW 16.8 % (12.1-15.1) H 07/15/23 20:37 Plt Count 305 10^3/cmm (157-399) 07/15/23 20:37 MPV 10.4 fL (7.4-10.4) 07/15/23 20:37 Neut % (Auto) 73.3 % 07/15/23 20:37 Lymph % (Auto) 18.3 % 07/15/23 20:37 [place] % (Auto) 6.8 % 07/15/23 20:37 Eos % (Auto) 0.9 % 07/15/23 20:37 Baso % (Auto) 0.3 % 07/15/23 20:37 Neut # (Auto) 8.74 10^3/uL (1.8-8.0) H 07/15/23 20:37 Lymph # (Auto) 2.2 10^3/uL (1.5-6.5) 07/15/23 20:37 [place] # (Auto) 0.8 10^3/uL (0.2-0.9) 07/15/23 20:37 Eos # (Auto) 0.1 10^3/uL (0.0-0.8) 07/15/23 20:37 Baso # (Auto) 0.0 10^3/uL (0.0-0.1) 07/15/23 20:37 Nucleated RBC % (auto) 0 % 07/15/23 20:37 Nucleated RBCs # 0.0 /100WBC 07/15/23 20:37 Sodium 144 mmol/L (136-145) 07/15/23 20:37 Potassium 4.0 mmol/L (3.5-5.1) 07/15/23 20:37 Chloride 107 mmol/L (98-107) 07/15/23 20:37 Carbon Dioxide 27 mmol/L (22-29) 07/15/23 20:37 Anion Gap 14.0 (5-19) 07/15/23 20:37 BUN 14 mg/dL (6-20) 07/15/23 20:37 Creatinine 0.6 mg/dL (0.5-0.9) 07/15/23 20:37 GFR Calculation 127.5 mL/min (90-130) 07/15/23 20:37 Glucose 93 mg/dL (65-115) 07/15/23 20:37 Calculated Osmolality 298 mOsm/kg (285-295) H 07/15/23 20:37 Calcium 9.1 mg/dL (8.5-10.5) 07/15/23 20:37 Total Bilirubin 0.3 mg/dL (0.15-1.2) 07/15/23 20:37 AST 40 U/L (0-32) H 07/15/23 20:37 ALT 46 U/L (0-33) H 07/15/23 20:37 Alkaline Phosphatase 116 U/L (35-105) H 07/15/23 20:37 Total Protein 6.6 g/dL (6.6-8.7) 07/15/23 20:37 Albumin 4.0 g/dL (3.5-5.2) 07/15/23 20:37 Globulin 2.6 g/dL (1.3-4.6) 07/15/23 20:37 Lipase 32 U/L (13-60) 07/15/23 20:37 HCG, Qual Negative (Negative) 07/15/23 20:30 Urine Color Yellow (Yellow) 07/15/23 21:15 Urine Appearance Hazy (CLEAR) A 07/15/23 21:15 Urine pH 6 (5-7) 07/15/23 21:15 Ur Specific [place] 1.020 (1.005-1.030) 07/15/23 21:15 Urine Protein Trace (Negative) 07/15/23 21:15 Urine Glucose (UA) Norm (Normal) 07/15/23 21:15 Urine Ketones 1+ (Negative) H 07/15/23 21:15 Urine Blood Neg (Negative) 07/15/23 21:15 Urine Nitrate Negative (Negative) 07/15/23 21:15 Urine Bilirubin 1+ (Negative) H 07/15/23 21:15 Urine Urobilinogen 1 mg/dL (Negative) H 07/15/23 21:15 Ur Leukocyte Esterase Negative (Negative) 07/15/23 21:15 Urine RBC 0-4 /hpf (0-2) H 07/15/23 21:15 Urine WBC 5-10 /hpf (0-5) H 07/15/23 21:15 Ur Squamous Epith Cells 15-25 /hpf (0-5) H 07/15/23 21:15 Amorphous Sediment Not Reportable 07/15/23 21:15 Urine Bacteria Trace /hpf (NONE) 07/15/23 21:15 Urine Mucus 3+ /hpf 07/15/23 21:15 No radiology studies performed this visit Discharge Plan Discharge Patient Disposition: Home Clinical Impression: Right-sided back pain Qualifiers: Back pain location: low back pain Chronicity: acute Sciatica presence: without sciatica Qualified Code(s): M54.50 - Low back pain, unspecified Condition: Stable Prescriptions: No Action ibuprofen 800 mg Tablet 800 mg PO TID Qty: 45 0RF hydrocodone-acetaminophen 5-325 mg Tablet 1 tab PO Q6H PRN (Reason: Moderate To Severe Pain) Qty: 28 0RF -U 106.5-1 mg Capsule 1 cap PO BREAKFAST Qty: 90 1RF Discharge Orders: Discharge ED (Routine); Ordered 07/15/23 Ordered By: Samia Kumar Referrals: Elias Garcia MD [Primary Care Provider] - Coding Level of Care Code ED Sewing Demonstrator for Pranay Raines
[2023-07-15] MEDS: ketorolac 60 mg/2 mL INJ IM (20:36)
[2023-07-15] MEDS: orphenadrine 30 mg/mL Inj 2 mL 60 MG IM (20:36)
[2023-07-15 20:44] LABS: HCG Qualitative Urine. Negative (Negative)
[2023-07-15 20:58] LABS: Basophils % 0.3 %; Eosinophils # 0.1 10^3/uL (0.0-0.8); Eosinophils % 0.9 %; Hematocrit 38.6 % (36-47); Lymphocytes # 2.2 10^3/uL (1.5-6.5); Lymphocytes % 18.3 %; Mean Corpuscular HGB Conc 30.3 g/dL (30-55); Mean Corpuscular Hemoglobin 25.1 pg (27-33); Mean Corpuscular Volume 82.8 fl (85-98); Mean Platelet Volume 10.4 fL (7.4-10.4); Monocytes # 0.8 10^3/uL (0.2-0.9); Monocytes % 6.8 %; Neutrophils # 8.74 10^3/uL (1.8-8.0); Neutrophils % 73.3 %; Nucleated Red Blood Cells % 0 %; Platelet Count 305 10^3/cmm (157-399); Red Blood Count 4.66 10^6/uL (3.85-5.65); Red Cell Distribution Width 16.8 % (12.1-15.1); White Blood Count 11.92 10^3/uL (4.5-13.0)
[2023-07-15 21:00] LABS: Blood Urine Neg (Negative); Glucose Urine UA Norm (Normal); Ketones Urine Negative (Negative); Nitrate Urine Negative (Negative); Protein Urine Neg (Negative); Specific Gravity, Urine 1.015 (1.005-1.030); Urine Appearance SL Hazy (CLEAR); Urine Color Yellow (Yellow); pH Urine 7 (5-7)
[2023-07-15 21:01] LABS: Add Urine Culture? No; Add Urine Microscopic? YES; Bacteria Urine 1+ /hpf; Bilirubin Urine Neg (Negative); Leukocyte Esterase Urine 1+ (Negative); Mucus Urine 3+ /hpf; RBC Urine 0-4 /hpf (0-2); Squamous Epithelial Cell Urine 15-25 /hpf (0-5); Urobilinogen Urine 1 mg/dL (Negative)
[2023-07-15 21:10] LABS: Alanine Aminotransferase 46 U/L (0-33); Alkaline Phosphatase 116 U/L (35-105); Aspartate Amino Transferase 40 U/L (0-32); Blood Urea Nitrogen 14 mg/dL (6-20); Calcium 9.1 mg/dL (8.5-10.5); Carbon Dioxide 27 mmol/L (22-29); Chloride 107 mmol/L (98-107); Creatinine Clr Calc Pharmacy 158.8867; Globulin 2.6 g/dL (1.3-4.6); Glomerular Filtration Rate 127.5 mL/min (90-130); Glucose 93 mg/dL (65-115); Lipase 32 U/L (13-60); Osmolality Calculated 298 mOsm/kg (285-295); Sodium 144 mmol/L (136-145); Total Bilirubin 0.3 mg/dL (0.15-1.2); Total Protein 6.6 g/dL (6.6-8.7)
[2023-07-15 21:27] VITALS: BP 124/65
[2023-07-15 21:29] LABS: Add Urine Microscopic? YES; Bilirubin Urine 1+ (Negative); Blood Urine Neg (Negative); Glucose Urine UA Norm (Normal); Ketones Urine 1+ (Negative); Leukocyte Esterase Urine Negative (Negative); Nitrate Urine Negative (Negative); Protein Urine Trace (Negative); Urine Appearance Hazy (CLEAR); Urine Color Yellow (Yellow); Urobilinogen Urine 1 mg/dL (Negative); pH Urine 6 (5-7)
[2023-07-15 21:30] LABS: RBC Urine 0-4 /hpf (0-2); Squamous Epithelial Cell Urine 15-25 /hpf (0-5)
[2023-07-15 21:31] LABS: Add Urine Culture? No; Bacteria Urine TRACE /hpf; Mucus Urine 3+ /hpf
[2023-07-15 21:41] VITALS: PULSE 87; RESP 14; O2SAT 96
== END 2023-07-15 21:46 | disposition home or self-care (01) ==
PROVIDERS: Emergency Provider Physician Assistant; PCP Family Medicine
DX: M54.50 Low back pain, unspecified (principal)
CPT/HCPCS: 36415; 80053; 81001; 81025; 83690; 85025; 96372; 99284; J1885; J2360

== ENCOUNTER 2023-08-10 18:57 | Emergency (ER) | payer SELFPAY ==
[2023-08-10 19:01] VITALS: BP 141/83; PULSE 107; RESP 16; TEMP 36.6; O2SAT 98
--- NOTE | 2023-08-10 20:06 | W.ED.ABDPA2 ---
HPI - Abdominal Pain General: Chief Complaint: Abdominal Pain Stated Complaint: n/v pain in back right flank Time Seen by Provider: 08/10/23 19:11 History of Present Illness: Patient presents to the ER with complaints of right flank pain that does not radiate. Patient says been going off and on for a month when the pain comes on it can be sharp stabbing dull achy pressure or all the above. There is nothing that the patient can do that makes it better or makes it worse. When it does come on patient does get severely nauseated and vomits. Patient denies any diarrhea constipation pain burning frequency with her urination. Related Data: Date of Last Menstrual Period: 07/13/23 Review of Systems General: Reports: 10 or more systems reviewed and unremarkable except in HPI and below PFSH ED PFSH: Medical History No pertinent past medical history No hx: HTN, DM, thyroid, DVT/PE PCP: Edson Dash Surgical History No pertinent past surgical history Family History Grandfather Cancer Great grandfather - Rare blood cancer Father Hyperlipidemia Grandmother Stroke Great grandmother Denies family history of Diabetes CAD (coronary artery disease) Clotting disorder Dementia Psychiatric illness Chronic kidney disease (CKD) Suicide Anesthesia complication Bleeding disorder Lung disease Hypertension Female Reproductive History: Date of last menstrual period: 07/13/23 Physical Exam Const: COMMON NORMALS: no acute distress, average body habitus, patient oriented x3, no limitations, healthy appearing, alert and well nourished HENMT: COMMON NORMALS: normocephalic, atraumatic, hearing grossly normal bilaterally, external ears normal, Normal external nose present, moist oral mucous membranes and oropharynx normal HEAD & SCALP: normocephalic and atraumatic NOSE: Normal external nose present EXTERNAL EAR: Yes external ears normal Neck/C-Spine: COMMON NORMALS: no JVD Chest: COMMONS NORMALS: normal inspection of the chest and normal palpation of entire chest wall Resp: COMMON NORMALS: normal respiratory effort, No retractions, No use of accessory muscles and clear to auscultation bilaterally AUSCULTATION: clear to auscultation bilaterally Cardio: COMMON NORMALS: no JVD, regular rate, regular rhythm, S1 normal heart sound present, S2 normal heart sound present, No gallops present (Cardio), No clicks present (Cardio), No murmurs present (Cardio) and No rub (Cardio) RATE: regular rate RHYTHM: regular rhythm HEART SOUNDS: S1 normal heart sound present and S2 normal heart sound present GI: COMMON NORMALS: Normal to inspection, nondistended, normoactive bowel sounds present, Soft to palpation, non-tender, No hepatosplenomegaly present and no masses PALPATION: Yes Soft to palpation and Yes No hepatosplenomegaly present Neuro: COMMON NORMALS: patient oriented x3 SENSORIUM/ORIENTATION: Yes alert Course Vital Signs: Vital signs: Vital Signs Temperature 98 F 08/10/23 19:01 Pulse Rate 79 08/11/23 01:09 Respiratory Rate 16 08/10/23 19:01 Blood Pressure 110/62 08/10/23 21:57 Pulse Oximetry 100 08/11/23 01:09 Oxygen Delivery Me thod Room Air 08/11/23 00:18 MDM - Abdominal Pain Medical Decision Making Patient had lab work performed that showed elevated AST and ALT, CT scan with contrast showed distended gallbladder questionable gallbladder thickening, prominent bile duct up to 9.5 mm, abdomen ultrasound showed cholelithiasis and borderline gallbladder wall thickening. Patient's pain is controlled with Toradol, these results was discussed with the patient. Patient be discharged home with Toradol to take as needed. Patient will be referred to general surgery for further evaluation and treatment. Medical Records I reviewed the patient's medical records. Lab Data I reviewed the patient's lab results. 08/10/23 20:02 08/10/23 20:02 Labs/Radiology: Radiology Impressions Abdomen/Pelvis CT 08/10/23 20:51 IMPRESSION: 1. Distended gallbladder with questionable mild gallbladder wall thickening. No definitive adjacent inflammatory change. Correlate with right upper quadrant ultrasound if indicated. 2. Prominent common bile duct measuring up to 9.5 mm. Correlate with serum bilirubin. 3. Small pelvic free fluid, likely physiologic. Abdomen Ultrasound 08/11/23 23:59 IMPRESSION: 1. Cholelithiasis and borderline gallbladder wall thickening. Negative sonographic Mcgee's sign. Correlate with physical exam. Consider HIDA scan if cholecystitis is suspected clinically. 2. Borderline common bile duct dilatation. Correlate with laboratory evaluation. Laboratory Results WBC 14.40 10^3/uL (4.5-13.0) H 08/10/23 20:02 RBC 4.63 10^6/uL (3.85-5.65) 08/10/23 20:02 Hgb 11.70 g/dL (12.4-14.8) L 08/10/23 20:02 Hct 37.5 % (36-47) 08/10/23 20: MCV 81.0 fl (85-98) L 08/10/23 20:02 MCH 25.3 pg (27-33) L 08/10/23 20: MCHC 31.2 g/dL (30-55) 08/10/23 20: RDW 16.0 % (12.1-15.1) H 08/10/23 20:02 Plt Count 341 10^3/cmm (157-399) 08/10/23 20: MPV 9.8 fL (7.4-10.4) 08/10/23 20: Neut % (Auto) 77.5 % 08/10/23 20: Lymph % (Auto) 12.8 % 08/10/23 20: [place] % (Auto) 8.6 % 08/10/23 20: Eos % (Auto) 0.5 % 08/10/23 20: Baso % (Auto) 0.2 % 08/10/23 20:02 Neut # (Auto) 11.15 10^3/uL (1.8-8.0) H 08/10/23 20:02 Lymph # (Auto) 1.9 10^3/uL (1.5-6.5) 08/10/23 20:02 [place] # (Auto) 1.2 10^3/uL (0.2-0.9) H 08/10/23 20:02 Eos # (Auto) 0.1 10^3/uL (0.0-0.8) 08/10/23 20: Baso # (Auto) 0.0 10^3/uL (0.0-0.1) 08/10/23 20:02 Nucleated RBC % (auto) 0 % 08/10/23 20: Nucleated RBCs # 0.0 /100WBC 08/10/23 20:02 Sodium 140 mmol/L (136-145) 08/10/23 20:02 Potassium 4.0 mmol/L (3.5-5.1) 08/10/23 20:02 Chloride 104 mmol/L (98-107) 08/10/23 20:02 Carbon Dioxide 26 mmol/L (22-29) 08/10/23 20:02 Anion Gap 14.0 (5-19) 08/10/23 20:02 BUN 13 mg/dL (6-20) 08/10/23 20: Creatinine 0.6 mg/dL (0.5-0.9) 08/10/23 20: GFR Calculation 127.5 mL/min (90-130) 08/10/23 20: Glucose 94 mg/dL (65-115) 08/10/23 20: Calculated Osmolality 290 mOsm/kg (285-295) 08/10/23 20: Calcium 9.1 mg/dL (8.5-10.5) 08/10/23 20: Total Bilirubin 0.6 mg/dL (0.15-1.2) 08/10/23 20:02 AST 100 U/L (0-32) H 08/10/23 20: ALT 93 U/L (0-33) H 08/10/23 20: Alkaline Phosphatase 118 U/L (35-105) H 08/10/23 20:02 Total Protein 6.9 g/dL (6.6-8.7) 08/10/23 20: Albumin 3.9 g/dL (3.5-5.2) 08/10/23 20: Globulin 3.0 g/dL (1.3-4.6) 08/10/23 20: Lipase 26 U/L (13-60) 08/10/23 20: HCG, Qual Negative (Negative) 08/10/23: Urine Color Yellow (Yellow) 08/10/23: Urine Appearance Sl hazy (CLEAR) A 08/10/23 20: Urine pH 7 (5-7) 08/10/23 20: Ur Specific [place] 1.010 (1.005-1.030) 08/10/23 20: Urine Protein Neg (Negative) 08/10/23:07 Urine Glucose (UA) Norm (Normal) 08/10/23 20:07 Urine Ketones Negative (Negative) 08/10/23 20:07 Urine Blood Neg (Negative) 08/10/23 20:07 Urine Nitrate Negative (Negative) 08/10/23 20:07 Urine Bilirubin Neg (Negative) 08/10/23 20:07 Urine Urobilinogen 1 mg/dL (Negative) H 08/10/23 20:07 Ur Leukocyte Esterase 1+ (Negative) H 08/10/23 20:07 Urine RBC None /hpf (0-2) 08/10/23 20:07 Urine WBC 0-4 /hpf (0-5) H 08/10/23 20:07 Ur Squamous Epith Cells 10-15 /hpf (0-5) H 08/10/23 20:07 Amorphous Sediment Not Reportable 08/10/23 20:07 Urine Bacteria Trace /hpf (NONE) 08/10/23 20:07 Urine Mucus 2+ /hpf 08/10/23 20:07 All radiology interpretation(s) finalized by discharge Discharge Plan Discharge Patient Disposition: Home Clinical Impression: Biliary colic Condition: Stable Prescriptions: New ketorolac 10 mg tablet 10 mg PO TID PRN (Reason: pain) Qty: 20 0RF Rx Instructions: maximum total duration of 5 days from all oral, intranasal, or parenteral formulations No Action ibuprofen 800 mg Tablet 800 mg PO TID Qty: 45 0RF hydrocodone-acetaminophen 5-325 mg Tablet 1 tab PO Q6H PRN (Reason: Moderate To Severe Pain) Qty: 28 0RF -U 106.5-1 mg Capsule 1 cap PO BREAKFAST Qty: 90 1RF Discharge Orders: Discharge ED (Routine); Ordered 08/11/23 Ordered By: Kian Bull Referrals: Elias Garcia MD [Primary Care Provider] - 1 week Patient Instructions: Abdominal Pain (ED), Biliary Colic (ED) Activity Restrictions/Additional Instructions: Your evaluation in ER showed your gallbladder is probably dysfunctional. You will be referred to a general surgeon for further evaluation and treatment. They may require a HIDA scan and possibly remove your gallbladder. You have been prescribed a pain medicine take on an as-needed basis. Please follow directions. Case management should be calling you within the next couple days to arrange your appointment to general surgery. Coding Level of Care Code ED Elastic Cutter for Pranay Raines
[2023-08-10] MEDS: sodium chloride 0.9% 1,000 ML 999 ML IV (20:20)
[2023-08-10] MEDS: ondansetron 2 mg/ML SDV 2 mL 4 MG IVP (20:21)
[2023-08-10 20:22] LABS: Basophils % 0.2 %; Eosinophils # 0.1 10^3/uL (0.0-0.8); Eosinophils % 0.5 %; Hematocrit 37.5 % (36-47); Lymphocytes # 1.9 10^3/uL (1.5-6.5); Lymphocytes % 12.8 %; Mean Corpuscular HGB Conc 31.2 g/dL (30-55); Mean Corpuscular Hemoglobin 25.3 pg (27-33); Mean Platelet Volume 9.8 fL (7.4-10.4); Monocytes # 1.2 10^3/uL (0.2-0.9); Monocytes % 8.6 %; Neutrophils # 11.15 10^3/uL (1.8-8.0); Neutrophils % 77.5 %; Nucleated Red Blood Cells % 0 %; Platelet Count 341 10^3/cmm (157-399); Red Blood Count 4.63 10^6/uL (3.85-5.65)
[2023-08-10 20:25] VITALS: BP 116/65; PULSE 83; O2SAT 100
[2023-08-10 20:42] LABS: Alanine Aminotransferase 93 U/L (0-33); Albumin Level 3.9 g/dL (3.5-5.2); Alkaline Phosphatase 118 U/L (35-105); Aspartate Amino Transferase 100 U/L (0-32); Blood Urea Nitrogen 13 mg/dL (6-20); Calcium 9.1 mg/dL (8.5-10.5); Carbon Dioxide 26 mmol/L (22-29); Chloride 104 mmol/L (98-107); Creatinine Clr Calc Pharmacy 161.0287; Glomerular Filtration Rate 127.5 mL/min (90-130); Glucose 94 mg/dL (65-115); Lipase 26 U/L (13-60); Osmolality Calculated 290 mOsm/kg (285-295); Sodium 140 mmol/L (136-145); Total Bilirubin 0.6 mg/dL (0.15-1.2); Total Protein 6.9 g/dL (6.6-8.7)
[2023-08-10 20:46] LABS: Add Urine Microscopic? YES; Bilirubin Urine Neg (Negative); Blood Urine Neg (Negative); Glucose Urine UA Norm (Normal); Ketones Urine Negative (Negative); Leukocyte Esterase Urine 1+ (Negative); Nitrate Urine Negative (Negative); Protein Urine Neg (Negative); Urine Appearance SL Hazy (CLEAR); Urine Color Yellow (Yellow); Urobilinogen Urine 1 mg/dL (Negative); WBC Urine 0-4 /hpf (0-5); pH Urine 7 (5-7)
[2023-08-10 20:47] LABS: Add Urine Culture? No; Bacteria Urine TRACE /hpf; Mucus Urine 2+ /hpf
--- NOTE | 2023-08-10 20:51 | CTR_ITS ---
PROCEDURE INFORMATION: Exam: CT Abdomen And Pelvis With Contrast Exam date and time: 08/10/2023 10:40 PM Age: 18 years old Clinical indication: Abdominal pain; Localized; Right; Additional info: Right flank pain elevated lfts TECHNIQUE: Imaging protocol: Computed tomography of the abdomen and pelvis with contrast. Radiation optimization: All CT scans at this facility use at least one of these dose optimization techniques: automated exposure control; mA and/or kV adjustment per patient size (includes targeted exams where dose is matched to clinical indication); or iterative reconstruction. Contrast material: OMNI 350; Contrast volume: 100 ml; Contrast route: INTRAVENOUS (IV); COMPARISON: US OB >= 14 weeks fetus [id number] 01/12/2023 12:51 PM RADIATION DOSE METRICS: Total DLP (mGy-cm): 745.3 FINDINGS: Lungs: The lung bases are clear. Heart: Heart size is within normal limits. There is no pericardial effusion or pericardial thickening. Liver: The liver is normal. No hepatic masses are identified. Gallbladder and bile ducts: Distended gallbladder with questionable mild gallbladder wall thickening. No definitive adjacent inflammatory change. Prominent common bile duct measuring up to 9.5 mm. No intrahepatic ductal dilatation. Normal distal tapering. Pancreas: The pancreas is normal. Spleen: The spleen is normal. Adrenal glands: The adrenal glands are normal. Kidneys and ureters: There is normal enhancement of the kidneys. No renal calcifications are identified. There is no hydronephrosis. Stomach and bowel: There is no large or small bowel obstruction. There is no evidence of bowel wall thickening. Appendix: A normal appendix is identified. Intraperitoneal space: Small pelvic free fluid, likely physiologic. No inflammatory changes are identified. There is no free fluid or fluid collection seen. There is no pneumoperitoneum. Vasculature: The aorta is normal in course and caliber. No significant atherosclerotic calcifications are present. Lymph nodes: There are no enlarged retroperitoneal or mesenteric lymph nodes. Urinary bladder: The bladder is unremarkable. Reproductive: The uterus is present. Incidental note made of right corpus luteal cyst. Bones/joints: No acute osseous abnormalities are seen. Soft tissues: The soft tissues are within normal limits. The soft tissues are within normal limits. CT/CT abdomen pelvis w con* [id number] IMPRESSION: 1. Distended gallbladder with questionable mild gallbladder wall thickening. No definitive adjacent inflammatory change. Correlate with right upper quadrant ultrasound if indicated. 2. Prominent common bile duct measuring up to 9.5 mm. Correlate with serum bilirubin. 3. Small pelvic free fluid, likely physiologic.
[2023-08-10 21:03] VITALS: BP 97/62; PULSE 83; O2SAT 99
[2023-08-10 21:57] VITALS: BP 110/62; PULSE 99; O2SAT 100
[2023-08-10 22:31] LABS: HCG Qualitative Urine. Negative (Negative)
[2023-08-10] MEDS: iohexol 350 mg/mL 500 mL Btl (per mL) IV (22:42)
[2023-08-11] MEDS: ketorolac 30 mg/mL INJ IVP (00:16)
[2023-08-11 00:18] VITALS: PULSE 90; O2SAT 100
[2023-08-11 01:09] VITALS: PULSE 79; O2SAT 100
[2023-08-11 02:30] VITALS: PULSE 83; RESP 16; O2SAT 97
--- NOTE | 2023-08-11 07:32 | DCPLANNER ---
Message sent to Gen Surg- Your evaluation in ER showed your gallbladder is probably dysfunctional
--- NOTE | 2023-08-11 23:59 | USR_ITS ---
PROCEDURE INFORMATION: Exam: US Abdomen, Limited; Right Upper Quadrant Exam date and time: 08/11/2023 12:45 AM Age: 18 years old Clinical indication: Abnormal findings; Abnormal radiologic finding of the abdomen; Radiologic exam and body structure: CT abdomen; Patient HX: Normal tbili = 0.6, elevated ast = 100, elevated alt = 93, elevated alkphos = 118, normal lipase = 26, negative hcg; Additional info: Abnormal CT of gb, right flank pain TECHNIQUE: Imaging protocol: Real time ultrasound of the abdomen with image documentation. Limited exam focused on the right upper quadrant. COMPARISON: US OB >= 14 weeks fetus [id number] 01/12/2023 12:51 PM FINDINGS: Liver: The liver is normal. No hepatic masses are identified. Gallbladder: Gallstones are identified within the gallbladder. Gallbladder wall measures at the upper limits of normal, 3 mm. Edge Burnisher Uppers reports a negative sonographic Mcgee's sign. Biliary ducts: Common bile duct is at the upper limits of normal measuring up to 8 mm. Pancreas: The visualized portions of the pancreas are within normal limits. The tail is obscured by bowel gas. Right kidney: The right kidney is normal. There is no evidence of renal calcification or hydronephrosis. The right kidney measures 10.2 cm Aorta: The aorta is unremarkable. Portal venous: Portal vein is patent and flow direction is normal. US/US abdomen limited [id number] IMPRESSION: 1. Cholelithiasis and borderline gallbladder wall thickening. Negative sonographic Mcgee's sign. Correlate with physical exam. Consider HIDA scan if cholecystitis is suspected clinically. 2. Borderline common bile duct dilatation. Correlate with laboratory evaluation.
== END 2023-08-11 01:42 | disposition home or self-care (01) ==
PROVIDERS: Emergency Provider Emergency Medicine; PCP Family Medicine
DX: K80.50 Calculus of bile duct without cholangitis or cholecystitis without obstruction (principal)
CPT/HCPCS: 74177; 76705; 80053; 81001; 81025; 83690; 85025; 96374; 96375; 99285; J1885; J2405; J7030; Q9967

== ENCOUNTER → 2023-08-27 07:52 | Outpatient (BNVA) | payer MEDICAID, SELFPAY | PROVIDERS: PCP Family Medicine; Referring Provider Emergency Medicine; Visit Provider Surgery | DX: K80.20 Calculus of gallbladder without cholecystitis without obstruction (principal) | CPT/HCPCS: 99204 ==

== ENCOUNTER 2023-09-03 09:29 | Day surgery (SDC) | payer MEDICAID, SELFPAY ==
[2023-09-03] VITALS (13 sets, daily range): BP systolic 103–135; BP diastolic 51–98; PULSE 74–98; RESP 16–18; TEMP 36.3–36.9; O2SAT 97–100; BMI 32.5
--- NOTE | 2023-09-03 09:34 | W.PM.OPSUD ---
Surgery/Procedure H&P Update DATE OF PROCEDURE: September 03, 2023 DATE H&P PERFORMED: 08/27/23 H&P UPDATE INFORMATION: I have reviewed H&P completed within last 30 days, I have examined patient prior to procedure and No changes to prior documentation PLANNED PROCEDURE: Operation Date: 09/03/23 10:50 Proposed Procedures p Laparoscopic Cholecystectomy 39082, K80.20(Not Applicable) - Romel Harris, DO
[2023-09-03] MEDS: scopolamine 1.5 Patch 1 PATCH TRANSDERMA (09:55)
[2023-09-03] MEDS: ondansetron 2 mg/ML SDV 2 mL 4 MG IVP (10:02)
[2023-09-03] MEDS: diphenhydrAMINE 50 mg/mL SDV 1mL 12.5 MG IVP (10:05)
--- NOTE | 2023-09-03 10:07 | ANES.PREANE2 ---
Pre-Anesthetic Assessment Height/Weight: Height 1.63 m Weight 86.183 kg Temp Pulse Resp BP Pulse Ox O2 Del Method 97.4 F L 79 18 116/69 100 Room Air 09/03/23 09:43 09/03/23 09:43 09/03/23 09:43 09/03/23 09:43 09/03/23 09:43 09/03/23 09:49 Operation Date: 09/03/23 10:50 Proposed Procedures p Laparoscopic Cholecystectomy 61114, K80.20(Not Applicable) - Romel Harris DO Familial anesthetic complications: none Was Beta Edwin taken within 24 hours: N/A Was Clonidine taken within 24 hours: N/A Last intake: Intake Last Liquid Date 09/02/23 Last Liquid Time 19:00 Last Solid Date 09/03/23 Last Solid Time 19:00 Social No alcohol and No tobacco Exam alert, oriented x 3, clear to auscultation bilaterally and regular rate & rhythm Airway Submandibular: within normal limits Cervical ROM: within normal limits Mallampati: Class II Dentition: full History/ROS No significant history except as noted Anesthetic Plan ASA status: 1 Anesthesia: General Medications/Allergies Home Medications Medication Instructions Recorded Confirmed Last Taken Type ibuprofen 800 mg tablet 800 mg PO TID #45 tabs 05/29/23 09/02/23 Unknown Rx ketorolac 10 mg tablet 10 mg PO TID PRN pain #20 tabs 08/11/23 09/02/23 08/19/23 Rx Allergies Allergy/AdvReac Type Severity Reaction Status Date / Time No Known Allergies Allergy Verified 08/27/23 07:56 Current Medications Generic Name Dose Route Start Last Admin Trade Name Freq PRN Reason Stop Dose Admin Diphenhydramine HCl 12.5 mg 09/03/23 09:31 09/03/23 10:05 Diphenhydramine 50 Mg/Ml Sdv 1ml IVP 12.5 mg ONCE PRN Administration PONV Ondansetron HCl 4 mg 09/03/23 09:31 09/03/23 10:02 Ondansetron 2 Mg/Ml Sdv 2 Ml IVP 4 mg ONCE PRN Administration NAUSEA AND VOMITING PFSH Anesthesia Medical History No pertinent past medical history No hx: HTN, DM, thyroid, DVT/PE PCP: Edson Dash Surgical History No pertinent past surgical history Family History Grandfather Cancer Great grandfather - Rare blood cancer Father Hyperlipidemia Grandmother Stroke Great grandmother Denies family history of Diabetes CAD (coronary artery disease) Clotting disorder Dementia Psychiatric illness Chronic kidney disease (CKD) Suicide Anesthesia complication Bleeding disorder Lung disease Hypertension Social History Smoking and tobacco/nicotine status: never used tobacco/nicotine Second hand smoke exposure: Yes Alcohol intake: never Substance/Drug Use: never Female Reproductive History Date of last menstrual period: 09/02/23 Data Anesthesia Cardiac Studies: No Data to Display
[2023-09-03] MEDS: sodium chloride 0.9% 1,000 ML 30 ML IV (10:12)
[2023-09-03] MEDS: ceFAZolin 2,000 MG in sodium chloride 0.9% (plus) 50 ML 100 MG IV (10:16)
[2023-09-03] MEDS: lidocaine-epi 2% PF 1:200,000 20 mL SDV XX (10:46)
--- NOTE | 2023-09-03 11:00 | P.OP_ITS ---
Operative Report Date of procedure: September 03, 2023 Surgeon: Romel Harris DO Brief History: This very pleasant 18-year-old female with symptomatic cholelithiasis. Laparoscopic cholecystectomy is indicated. The risk benefits were explained and documented. Procedure: Preoperative diagnosis: Symptomatic cholelithiasis Postoperative diagnosis: Same Procedure performed: Laparoscopic cholecystectomy Surgeon: Dr. Romel Harris DO Estimated blood loss: 5 mL Specimens: Gallbladder to pathology Complications: None apparent Description of procedure: Patient was wheeled into the operative room and placed on the OR table in a supine position. Abdomen was inspected prepped and draped in usual sterile fashion. Time-out was performed and all present were in agreement. A 15 blade scalp was used to make a stab incision in the left upper quadrant and intra- abdominal insufflation was achieved using a Veress needle. After localizing the tissue incisions were made and a 5 millimeter trocar was placed into the umbilicus as well as 2 in the right upper quadrant. A 12 millimeter trocar was placed in the epigastrium. Gallbladder was grasped and elevated. The triangle of Calot was carefully dissected using blunt dissection and electrocautery until the triangle of Calot clearly identified. The cystic duct was clipped proximally and double clipped distally. The duct was then ligated proximally. The cystic artery was doubly clipped and ligated. The gallbladder was then removed from the liver bed using electrocautery. The gallbladder was removed from the abdomen using an Endo-Catch bag through the epigastric incision. The liver bed was inspected and no bleeding was seen. The abdomen was irrigated and suctioned. All ports removed. Skin was washed and dried. Incisions were closed with 4-0 Monocryl in a subcuticular interrupted fashion. Skin glue was applied. Patient tolerated the procedure well.
[2023-09-03] MEDS: fentaNYL 50 mcg/mL INJ 2mL IVP (11:45)
--- NOTE | 2023-09-03 13:51 | ANE.PACU2 ---
Inpatient post-anesthesia follow up: Airway intact: Yes Vital signs: Temperature 98.4 F Pulse Rate 93 Respiratory Rate 16 Blood Pressure 122/86 Pulse Oximetry 98 Oxygen Delivery Me thod Room Air Oxygen Flow Rate 6 Fraction of Inspir ed Oxygen Hydration adequate: Yes Nausea and vomiting: No Pain level: 2 Mental status: Baseline
[2023-09-03 16:08] LABS: OR HCG Qualitative Urine Negative (Negative)
== END 2023-09-03 12:42 | disposition home or self-care (01) ==
PROVIDERS: Anesthesiology; PCP Family Medicine; Visit Provider Surgery
PROC: 0FT44ZZ Resection of Gallbladder, Percutaneous Endoscopic Approach (ICD-10-PCS; CPT 47562; principal; 2023-09-03 10:50)
DX: K80.10 Calculus of gallbladder with chronic cholecystitis without obstruction (principal)
CPT/HCPCS: 47562; 81025; 88304; J0690; J1100; J1200; J1885; J2405; J2704; J2710; J3010; J3490; J7030

== ENCOUNTER → 2023-09-18 13:03 | Outpatient (BNVA) | payer MEDICAID, SELFPAY | PROVIDERS: PCP Family Medicine; Visit Provider Surgery | DX: Z90.49 Acquired absence of other specified parts of digestive tract (principal); Z98.890 Other specified postprocedural states | CPT/HCPCS: 99024 ==

== ENCOUNTER 2024-09-15 08:48 | Oncology outpatient (recurring) (ONCR) | payer MEDICAID, SELFPAY ==
[2024-09-15] MEDS: rho(d) immune globulin 1,500 unit Syringe 1500 UNIT IM (09:22)
[2024-09-15 09:27] VITALS: BP 116/74; PULSE 95; RESP 16; TEMP 36.8; O2SAT 97
== END 2024-09-17 23:59 | disposition home or self-care (01) ==
LOC: ONCMED 08:49
PROVIDERS: PCP Family Medicine; Visit Provider Family Medicine
DX: O26.893 Other specified pregnancy related conditions, third trimester (principal); Z67.41 Type O blood, Rh negative; Z3A.28 28 weeks gestation of pregnancy; Z79.899 Other long term (current) drug therapy
CPT/HCPCS: 96372; J2790

== ENCOUNTER 2024-11-30 05:16 | Inpatient (IN) | payer MEDICAID, SELFPAY ==
--- NOTE | 2024-11-17 18:13 | ANES.PREANE2 ---
Pre-Anesthetic Assessment Height/Weight: Height 5 ft 4 in Preop Diagnosis: IUP Operation Date: 11/30/24 07:20 Proposed Procedures p Section Repeat(Not Applicable) - Elias Garcia MD Was Beta Edwin taken within 24 hours: N/A Was Clonidine taken within 24 hours: N/A Social No alcohol and No tobacco Exam alert, oriented x 3, clear to auscultation bilaterally and regular rate & rhythm Airway Submandibular: within normal limits Cervical ROM: within normal limits Mallampati: Class III Anesthetic Plan ASA status: 2 Anesthesia: Regional (specify below) Other: Patient here for preop evaluation for epidural placement No issues during Will obtain labs prior to epidural placement Plan for routine epidural placement when desired Medications/Allergies Home Medications ?Medication ?Instructions ?Recorded ?Confirmed ?Last Taken ?Type ibuprofen 800 mg tablet 800 mg PO TID #45 tabs 05/29/23 09/18/23 Unknown Rx Held on 09/03/23. Instructions: Resume on 09/05/23. ketorolac 10 mg tablet 10 mg PO TID PRN pain #20 tabs 08/11/23 09/18/23 08/19/23 Rx Held on 09/03/23. Instructions: Resume on 09/05/23. docusate sodium 100 mg capsule 100 mg PO BID #14 caps 09/03/23 09/18/23 Unknown Rx (Colace) hydrocodone 7.5 mg-acetaminophen 1 tab PO Q6H PRN pain #20 tabs 09/03/23 09/18/23 Unknown Rx 325 mg tablet Allergies Allergy/AdvReac Type Severity Reaction Status Date / Time No Known Allergies Allergy Verified 09/18/23 13:04 [facility] Anesthesia Medical History No pertinent past medical history No hx: HTN, DM, thyroid, DVT/PE PCP: Edson Dash Surgical History (Updated 10/01/23 @ 07:17 by Romel Harris DO) Status post laparoscopic cholecystectomy Family History Grandfather Cancer Great grandfather - Rare blood cancer Father Hyperlipidemia Grandmother Stroke Great grandmother Denies family history of Diabetes CAD (coronary artery disease) Clotting disorder Dementia Psychiatric illness Chronic kidney disease (CKD) Suicide Anesthesia complication Bleeding disorder Lung disease Hypertension Social History Smoking and tobacco/nicotine status: never used tobacco/nicotine Second hand smoke exposure: Yes Alcohol intake: never Substance/Drug Use: never
[2024-11-30] VITALS (61 sets, daily range): BP systolic 89–123; BP diastolic 54–72; PULSE 58–88; RESP 16–18; TEMP 36.3–36.8; O2SAT 88–100; BMI 31.6
--- NOTE | 2024-11-30 06:13 | ANES.PREANE2 ---
Pre-Anesthetic Assessment Height/Weight: Height 5 ft 5 in Weight 190 lb 8 oz Pulse BP 78 121/58 11/30/24 05:30 11/30/24 05:30 Preop Diagnosis: IUP Operation Date: 11/30/24 07:20 Proposed Procedures p Section Repeat(Not Applicable) - Elias Garcia MD Was Beta Edwin taken within 24 hours: N/A Was Clonidine taken within 24 hours: N/A Social No alcohol and No tobacco Exam alert, oriented x 3, clear to auscultation bilaterally and regular rate & rhythm Airway Submandibular: within normal limits Cervical ROM: within normal limits Mallampati: Class II Dentition: full Comments: Comments: Nose ring Anesthetic Plan ASA status: 2 Anesthesia: Regional (specify below) Other: Patient here for scheduled Prior patient got sick, educated patient about making us aware if she feels any nausea and we will be ready to treat blood pressure No issues during Denies any cardiac or pulmonary issues Labs from today acceptable for procedure, hemoglobin 10.4. Platelets 236 Plan for routine with spinal Medications/Allergies Home Medications ?Medication ?Instructions ?Recorded ?Confirmed ?Last Taken ?Type uspssjdj-ddo-Fd-FA 1 mg 1 tab PO DAILY 11/30/24 11/30/24 11/29/24 History tablet Allergies Allergy/AdvReac Type Severity Reaction Status Date / Time No Known Allergies Allergy Verified 11/30/24 05:27 Current Medications Generic Name Dose Route Start Last Admin Trade Name Freq PRN Reason Stop Dose Admin Sodium Chloride 1,000 mls @ 999 mls/hr 11/30/24 05:22 11/30/24 06:00 Sodium Chloride 0.9% IV 11/30/24 06:22 999 mls/hr .Q1H1M ONE Administration PFS Anesthesia Medical History No pertinent past medical history No hx: HTN, DM, thyroid, DVT/PE PCP: Edson Dash Surgical History (Updated 10/01/23 @ 07:17 by Romel Harris DO) Status post laparoscopic cholecystectomy Family History Grandfather Cancer Great grandfather - Rare blood cancer Father Hyperlipidemia Grandmother Stroke Great grandmother Denies family history of Diabetes CAD (coronary artery disease) Clotting disorder Dementia Psychiatric illness Chronic kidney disease (CKD) Suicide Anesthesia complication Bleeding disorder Lung disease Hypertension Social History Smoking and tobacco/nicotine status: never used tobacco/nicotine Second hand smoke exposure: Yes Alcohol intake: never Substance/Drug Use: never Female Reproductive History : 2 Data Anesthesia 11/30/24 05:48
[2024-11-30 06:14] LABS: Hematocrit 32.3 % (36-47); Hemoglobin 10.40 g/dL (11.27-16.99); Mean Corpuscular HGB Conc 32.2 g/dL (30-55); Mean Corpuscular Hemoglobin 26.2 pg (27-33); Mean Corpuscular Volume 81.4 fl (85-98); Nucleated Red Blood Cells % 0 %; Platelet Count 236 10^3/cmm (157-399); Red Blood Count 3.97 10^6/uL (3.85-5.65); White Blood Count 9.33 10^3/uL (3.29-11.43)
[2024-11-30] MEDS: metoclopramide 5 mg/mL SDV 2 mL 10 MG IVP (06:40)
--- NOTE | 2024-11-30 06:40 | PM.OBGYHP ---
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 Her due date is based on a first trimester ultrasound. The patient has had a relatively unremarkable . There have been no concerns. In the office, we discussed the risks and alternatives to doing a section. She made it clear that she wanted to proceed with a section. Her has been relatively unremarkable. Her blood type is O-. Her antibody screen was negative. She passed her glucose screen. She is GBS positive. She is rubella immune. The remainder of her infectious disease profile is within normal limits. Present Details : 2 Para: 1 Labs Rubella: Immune RPR: Negative GBS: Positive Review of Systems General: Reports: 10 or more systems reviewed and unremarkable except in HPI and below Const: Reports: fatigue; Denies: fever(s) Eyes: Denies: change in vision Card: Denies: chest pain Musc: Reports: back pain Jose Daniel/Lymph: Denies: easy bruising Medications/Allergies Home Medications ?Medication ?Instructions ?Recorded ?Confirmed ?Last Taken ?Type fvdopmfw-mxw-Mh-FA 1 mg 1 tab PO DAILY 11/30/24 11/30/24 11/29/24 History tablet Allergies Allergy/AdvReac Type Severity Reaction Status Date / Time No Known Allergies Allergy Verified 11/30/24 05:27 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: Medical History No pertinent past medical history No hx: HTN, DM, thyroid, DVT/PE PCP: Edson Dash Surgical History Status post laparoscopic cholecystectomy Family History Grandfather Cancer Great grandfather - Rare blood cancer Father Hyperlipidemia Grandmother Stroke Great grandmother Denies family history of Diabetes CAD (coronary artery disease) Clotting disorder Dementia Psychiatric illness Chronic kidney disease (CKD) Suicide Anesthesia complication Bleeding disorder Lung disease Hypertension Social History Smoking and tobacco/nicotine status: never used tobacco/nicotine Second hand smoke exposure: Yes Alcohol intake: never Substance/Drug Use: never History History History 2 Term 1 Miscarriages/Ectopic Living Children 1 Vitals/I&O/Wt Last Vital Signs Pulse 78 11/30/24 05:30 BP 121/58 11/30/24 05:30 O2 Del Method Room Air 11/30/24 06:14 Weight last 48 hrs Weight 190 lb 8 oz Weight 190 lb 8 oz Weight 190 lb 8 oz Physical Exam Const: COMMON NORMALS: patient oriented x3 and alert HENMT: COMMON NORMALS: moist oral mucous membranes HEAD & SCALP: normal to inspection Chest: COMMONS NORMALS: normal inspection of the chest Resp: COMMON NORMALS: clear to auscultation bilaterally AUSCULTATION: clear to auscultation bilaterally Cardio: COMMON NORMALS: regular rate and regular rhythm RATE: regular rate RHYTHM: regular rhythm GI: INSPECTION: Yes normal to inspection and Yes other (Gravid) Extremity: COMMON NORMALS: normal to inspection GENERAL: Yes edema (Trace) Neuro: COMMON NORMALS: patient oriented x3, moves all extremities and no sensory deficits noted SENSORIUM/ORIENTATION: Yes alert Psych: COMMON NORMALS: mental status grossly normal Skin: COMMON NORMALS: no rashes or lesions noted GENERAL SKIN EXAM: no rashes or lesions noted Data 11/30/24 05:48 Results Labs OB ([facility]): Obstetrics US 08/17/24 Blood Type O Negative 05/28/23 Antibody Screen Negative 05/28/23 Hct, (36-47) 32.3 % L Today Hgb, (11.27-16.99) 10.40 g/dL L Today Rho(D) Type Negative 05/28/23 Plt Count, (157-399) 236 10^3/cmm Today HCG, Qual, (Negative) Negative 08/10/23 A&P Assessment and plan 1. 39 weeks gestation of : I anticipate routine and post care. The patient desires to go home tomorrow if possible. PDMP PDMP Reviewed: Not Reviewed Attestations Medical Necessity Statement*: Routine and post care Coding Level of Care Code Acute Code for Chg Fwd Diagnoses 39 weeks gestation of Z3A.39
[2024-11-30] MEDS: BUPivacaine 0.5% INJ 30 mL INJECTION (07:43)
--- NOTE | 2024-11-30 08:16 | PM.OP ---
Operative Report Date of procedure: November 30, 2024 Pre-op diagnosis: 19-year-old 2 para 1-0-0-1 at 39 weeks estimated gestational age History of section Post-op diagnosis: Status post repeat low-transverse section Procedure done: Lower transverse section Specimens removed/disposition: 1. Female with Apgars of 9 and 9 and weight of 6 pounds 12 ounces 2. Placenta with a three-vessel cord delivered intact Surgeon: Elias Garcia MD Estimated blood loss: 400 Procedure: The patient was brought back to the operating room where she was prepped and draped in usual sterile fashion. Anesthesia was found to be adequate. A lower transverse skin incision was then made with a #10 blade. I then dissected down to the underlying subcutaneous tissue until arriving at the prerectal fascia. The fascia was then nicked with the scalpel bilaterally. The fascial incisions were then carried laterally with Pickering scissors. Attention was then turned to the superior aspect of the incision which was grasped with kochers and tented up away from the underlying rectus abdominis muscles. The muscles were then dissected away from the fascia manually, and later with Pickering scissors. Attention was then turned to the inferior aspect of the incision, and the fascia was dissected away from the underlying muscle in similar fashion. The rectus abdominis muscles were then spread manually. The peritoneum was entered manually. Excellent visualization of the uterus was noted. A lower transverse uterine incision was then made with a #10 blade. Upon arriving at the intrauterine cavity, the uterine incision was then extended manually. The infant was noted to be in vertex position. The baby was delivered without difficulty and placed on the mother's abdomen. There was no meconium. There was no nuchal cord. The cord was cut and clamped. The baby was then handed to the waiting nurse. The placenta was removed intact. The uterus was externalized. The intrauterine cavity was cleansed of any remaining debris. The uterine incision was reapproximated in 2 layers. The first layer was performed with 0 Vicryl in a running locked stitch. The second layer was an imbricating stitch also using 0 Vicryl. The uterus was replaced into the abdomen. The peritoneum was then irrigated with warm saline. I reexamined the uterine incision and found it to be hemostatic. The rectus abdominis muscles were then reapproximated using 0 Vicryl in a running stitch. The fascia was then reapproximated using 0 Vicryl in running stitch. The subcutaneous tissue was also reapproximated using 0 Vicryl in a running stitch. The skin was reapproximated using henrry. A sterile dressing was placed. All counts were correct x2. Both the mother and baby were in stable condition.
--- NOTE | 2024-11-30 08:42 | ANE.PACU2 ---
Inpatient post-anesthesia follow up: Airway intact: Yes Vital signs: Temperature 97.5 F Pulse Rate 64 Respiratory Rate 16 Blood Pressure 97/54 Pulse Oximetry 100 Oxygen Delivery Me thod Room Air Oxygen Flow Rate Fraction of Inspir ed Oxygen Hydration adequate: Yes Nausea and vomiting: No Pain level: 1 Mental status: Baseline
[2024-11-30 11:29] LABS: PCP Screen Urine Negative (Negative)
--- NOTE | 2024-11-30 16:41 | PC.NURSE ---
1500 Patient up to sit at bedside; pericare done. Clean pad and underwear applied and patient to sitting in chair. Tolerated well.
--- NOTE | 2024-11-30 16:43 | PC.NURSE ---
1789 Patient ambulated in halls 3 laps around OB unit; tolerated well. Returned to room and sitting up in chair visiting with family/visitors.
[2024-11-30 23:34] LABS: Hematocrit 30.3 % (36-47); Hemoglobin 9.50 g/dL (11.27-16.99); Mean Corpuscular HGB Conc 31.4 g/dL (30-55); Mean Corpuscular Hemoglobin 26.1 pg (27-33); Mean Corpuscular Volume 83.2 fl (85-98); Platelet Count 204 10^3/cmm (157-399); Red Blood Count 3.64 10^6/uL (3.85-5.65); White Blood Count 11.91 10^3/uL (3.29-11.43)
[2024-12-01 04:59] VITALS: BP 104/63; PULSE 67; RESP 17; TEMP 36.7; O2SAT 99
--- NOTE | 2024-12-01 06:34 | PM.OBGYDC ---
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 39 weeks gestation of : Reason for Visit Reason for Visit: C Section Hospital Course Hospital Course The patient presented to the hospital for a scheduled repeat section. The procedure was unremarkable. The patient's post operative course was also unremarkable. Her pain was well-controlled. Her bleeding was within normal limits. She passed gas. She tolerated a regular diet. There were no concerns. Information Peripartum Data: Infant Delivery Method: Physical Exam Narrative: She is in no acute distress Lungs are clear auscultation bilaterally Her heart has a regular rate and rhythm Her fundus is below the umbilicus and firm Her dressing is clean, dry and intact Her extremities have trace edema Urinary Catheter Management: Gonzáles Latex Free: Cath Placed During This Visit: yes, but has since been removed by the nurse Reason for Continuing Indwelling Catheter: Required Immobilization for Trauma or Surgery or Anesthesia Urinary Catheter Date of Insertion: 11/30/24 Urinary Catheter Time of Insertion: 07:10 Date Urinary Catheter Removed: 11/30/24 Time Urinary Catheter Discontinued: 18:40 History History History 2 Term 1 Miscarriages/Ectopic Living Children 1 Discharge Data Studies Completed and Pending Laboratory Results WBC 11.91 10^3/uL (3.29-11.43) H 11/30/24 23: RBC 3.64 10^6/uL (3.85-5.65) L 11/30/24 23:22 Hgb 9.50 g/dL (11.27-16.99) L 11/30/24 23:22 Hct 30.3 % (36-47) L 11/30/24 23:22 MCV 83.2 fl (85-98) L 11/30/24 23:22 MCH 26.1 pg (27-33) L 11/30/24 23: MCHC 31.4 g/dL (30-55) 11/30/24 23:22 RDW 14.3 % (12.1-15.1) 11/30/24 23:22 Plt Count 204 10^3/cmm (157-399) 11/30/24 23:22 MPV 11.2 fL (7.4-10.4) H 11/30/24 23:22 Neut % (Auto) 62.6 % 11/30/24 05:48 Lymph % (Auto) 27.9 % 11/30/24 05:48 Bacon % (Auto) 7.9 % 11/30/24 05:48 Eos % (Auto) 1.0 % 11/30/24 05:48 Baso % (Auto) 0.2 % 11/30/24 05:48 Neut # (Auto) 5.84 10^3/uL (1.8-7.7) 11/30/24 05:48 Lymph # (Auto) 2.6 10^3/uL (0.8-4.8) 11/30/24 05:48 Bacon # (Auto) 0.7 10^3/uL (0.2-0.9) 11/30/24 05:48 Eos # (Auto) 0.1 10^3/uL (0.0-0.8) 11/30/24 05:48 Baso # (Auto) 0.0 10^3/uL (0.0-0.1) 11/30/24 05:48 Nucleated RBC % (auto) 0 % 11/30/24 05:48 Nucleated RBCs # 0.0 /100WBC 11/30/24 05:48 Urine Opiates Screen Negative ng/mL (Negative) 11/30/24 11:00 Ur Barbiturates Screen Negative ng/mL (Negative) 11/30/24 11:00 Ur Phencyclidine Scrn Negative ng/mL (Negative) 11/30/24 11:00 Ur Amphetamines Screen Negative ng/mL (Negative) 11/30/24 11:00 U Benzodiazepines Scrn Negative ng/mL (Negative) 11/30/24 11:00 Urine Cocaine Screen Negative ng/mL (Negative) 11/30/24 11:00 U Marijuana (THC) Screen Negative ng/mL (Negative) 11/30/24 11:00 Blood Type O Negative 11/30/24 05:48 Rho(D) Type Rh negative 11/30/24 05:48 Antibody Screen Positive 11/30/24 05:48 Antibody Identification Anti-D 11/30/24 05:48 Vitals Last Vital Signs Temp 98.0 F 12/01/24 04:59 Pulse 67 12/01/24 04:59 Resp 17 12/01/24 04:59 BP 104/63 12/01/24 04:59 Pulse Ox 99 12/01/24 04:59 O2 Del Method Room Air 12/01/24 04:59 Results Labs OB ([facility] Obstetrics US 08/17/24 Blood Type O Negative 11/30/24 Antibody Screen Positive 11/30/24 Hct, (36-47) 30.3 % L 11/30/24 Hgb, (11.27-16.99) 9.50 g/dL L 11/30/24 Rho(D) Type Rh negative 11/30/24 Plt Count, (157-399) 204 10^3/cmm 11/30/24 HCG, Qual, (Negative) Negative 08/10/23 Urine Opiates Screen, (Negative) Negative ng/mL 11/30/24 Ur Barbiturates Screen, (Negative) Negative ng/mL 11/30/24 Ur Phencyclidine Scrn, (Negative) Negative ng/mL 11/30/24 Ur Amphetamines Screen, (Negative) Negative ng/mL 11/30/24 U Benzodiazepines Scrn, (Negative) Negative ng/mL 11/30/24 Urine Cocaine Screen, (Negative) Negative ng/mL 11/30/24 U Marijuana (THC) Screen, (Negative) Negative ng/mL 11/30/24 Discharge Plan Discharge Patient Disposition: Home Condition: Stable Prescriptions: New ibuprofen 800 mg Tablet 800 mg PO TID Qty: 45 0RF hydrocodone-acetaminophen 5-325 mg Tablet 1 tab PO Q6H PRN (Reason: Moderate To Severe Pain) Qty: 20 0RF docusate sodium 100 mg Capsule 100 mg PO BID Qty: 14 0RF Continued mxsylkhx-qqp-Kv-FA 1 mg Tablet 1 tab PO DAILY Discharge Order = DC NOW: Discharge Order (Routine); Ordered 12/01/24 Ordered By: Elias Garcia Referrals: Elias Garcia MD [Primary Care Provider, [facility]] - 4-7 days Referral Note: Please make sure mom and baby's appointment are at the same time. Also set up for 6-week appointment. 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
[2024-12-01] MEDS: PRENATAL VIT NO.130/IRON/FOLIC 1 EACH TABLET PO (08:57)
[2024-12-01 10:00] VITALS: BP 99/63; PULSE 67; RESP 16; TEMP 36.7; O2SAT 98
[2024-12-01 14:10] VITALS: BP 103/64; PULSE 82; RESP 18; TEMP 36.7; O2SAT 98
[2024-12-01 14:43] VITALS: BP 103/64; PULSE 82; RESP 18; TEMP 36.7; O2SAT 98
== END 2024-12-01 14:43 | disposition home or self-care (01) | DRG 788 ==
PROVIDERS: Admitting Provider Family Medicine; PCP Family Medicine; Visit Provider Family Medicine
PROC: 10D00Z1 Extraction of Products of Conception, Low, Open Approach (ICD-10-PCS; CPT 59514; principal; 2024-11-30 07:00)
DX: O34.211 Maternal care for low transverse scar from previous cesarean delivery (principal); N85.8 Other specified noninflammatory disorders of uterus; O99.824 Streptococcus B carrier state complicating childbirth; Z3A.39 39 weeks gestation of pregnancy; Z37.0 Single live birth
CPT/HCPCS: 36415; 51702; 59025; 59409; 80306; 80503; 85025; 85027; 86850; 86870; 86900; 96374; 96376; J1885; J2274; J2405; J2765; J3010; J3490; J7030; J7121; J9999